=== PATIENT | female | born 1970 | race Caucasian/White ===

== ENCOUNTER 2021-06-07 16:01 | Inpatient (IN) ==
--- NOTE | 2021-06-07 16:27 | DR.EXTPAIN ---
HPI Time seen Time Seen by Provider: 06/07/21 16:24 PCP Primary Care Physician: FAIZAN Complaint/Symptoms Chief Complaint Doctor Comments: 51 y/o female sent in by podiatry for evaluation and admission. She has had pain/swelling/infection involving her left foot. 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 She accidentally cut into it deeper than intended one month ago, trying to cut off the callous. Has been on antibiotics, running a fever, having pain/swelling and redness of the left foot. Pain is sharp, worse with movement and ambulation, nothing makes it better. Pain does not radiate. Admits to fever, chills. No URI symptoms, No bowel or bladder issues. Has chronic R ankle pain as well. + h/o Charcot joint, R ankle surgery. Having complications with her hardware, Dr. Stanley planning on doing ankle surgery as well. Chief Complaint:: PT. C/O FOOT INFECTION WITH ABSCESS TO LEFT FOOT. PT. HAS HAD ISSUES WITH FOOT X 1 MONTH. PT. WAS SENT TO THE ER FOR FURTHER EVALUATION AND ADMISSION TO THE HOSPITAL PER DR. STANLEY. PT. HAS BEEN ON ANTIBIOTICS AT HOME. COVID-19 Coronavirus risk:travel/contact w/high risk person: No Has patient experienced Coronavirus symptoms: No Nurses notes reviewed Nurses Notes Review: Yes Source History Provided: Patient Mode of arrival Mode of Arrival: Wheelchair Timing Onset of Chief Complaint: 05/08/21 PMH PMH Past Medical History: Yes Past Medical History: Diabetes Past Medical History Comment: ENDEMETROSIS, MARTA'S DISEASE Past Surgical History: Yes Surgical History: Abdominal Surgery, Appendectomy, Hysterectomy, Tonsillectomy and Other Past Surgical History Comment: 14 SURGIERIES ON BOTH FEET TOTAL, LEFT FOOT HAS PARTIAL AMPUTATION, THREE SEGMENTS OF TOES REMOVED FROM RIGHT FOOT Family History History of Family Medical Conditions: Yes Family Medical History: Diabetes Mellitus, Cancer and Coronary Artery Disease Social History Does patient currently use any type of tobacco product: No Have you used tobacco products in the last 12 months: No Type of Tobacco Use: None Does any household member use tobacco: No Alcohol Use: None Do you use any recreational Drugs:: No Lives With: Alone Lives Where: Home Infectious screening In the last 2 months have you had wt loss of >10#?: NO Have you had fever, night sweats or hemotysis?: No Have you traveled outside the country in the last 6 months?: No Isolation: Standard ROS Review of Systems Constitutional: Chills, Fever and Weakness Eyes: No Symptoms Reported ENTM: No Symptoms Reported Respiratoy: No Symptoms Reported Cardiovascular: No Symptoms Reported Gastrointestinal/Abdominal: No Symptoms Reported Genitourinary: No Symptoms Reported Neurological: No Symptoms Reported Musculoskeletal: Joint Pain, Left and Foot Integumentary: No Symptoms Reported Hematologic/Lymphatic: No Symptoms Reported Endocrine: No Symptoms Reported Psychiatric: No Symptoms Reported All Other Systems: Reviewed and Negative PE Vital Signs Vitals: Temperature 100.0 F Pulse Rate 94 Respiratory Rate 22 Blood Pressure 107/56 O2 Sat by Pulse Oximetry 94 General Limitations: No Limitations General Appearance: Alert and In No Apparent Distress Head Head Exam: Normal Inspection Eyes Eye exam: Normal Appearance ENT ENT Exam: Normal Exam Neck Neck Exam: Normal Inspection Chest Chest Inspection: Normal Inspection Respiratory Respiratory Exam: Normal Lung Sounds Bilat; negative Accessory Muscle Use and Respiratory Distress Respiratory Exam: Bilateral: Clear to Auscultation Cardiovascular Cardiovascular Exam: Regular Rate, Normal Rhythm and Normal Heart Sounds Abdominal Exam Abdominal Exam: Normal Inspection, Normal Bowel Sounds and Soft; negative Tenderness Extremities Extremities Exam: Other (L foot with 1.5 cm ulceration of volar forefoot, under 1st MTP joint. + swelling, mild erythema. R ankle - with swelling, tenderness, decreased ROM.) Neurological Neurological Exam: Alert, Oriented X3 and CN II-XII Intact; negative Motor Sensory Deficit Psychiatric Psychiatric Exam: Normal Affect Skin Skin Exam: Warm and Dry MDM Differential Diagnosis Differential Diagnosis: Other (cellulitis, abscess) COURSE Treatment Treatment: 51 y/o female with worsening left foot ulcer/infection, was sent here by podiatry to perform medical w/u. They are planning to take to OR in near future. W/u initiated. Left foot with chronic infection. Xray - without evidence for osteomyelitis. Slight gas formation. Labs are overall acceptable. Will be admitted to medical service, discussed with Dr Mc, will admit to medical service. Dr Stanley already consulting with pt for surgery. [facility]OR Labs Reviewed Laboratory Results Reviewed?: Yes Result Diagrams: 06/07/21 16:46 06/07/21 16:46 Laboratory: WBC 9.6 X10^3/uL (3.6-10.0) 06/07/21 16:46 RBC 4.21 X10^6/uL (3.5-5.4) 06/07/21 16:46 Hgb 10.5 g/dL (12.0-16.0) L 06/07/21 16:46 Hct 32.7 % (36.0-47.0) L 06/07/21 16:46 MCV 77.7 fL (80.0-100.0) L 06/07/21 16:46 MCH 25.0 pg (27.0-34.0) L 06/07/21 16:46 MCHC 32.2 g/dL (33.0-35.0) L 06/07/21 16:46 RDW 17.8 % (11.6-16.5) H 06/07/21 16:46 Plt Count 243 X10^3/uL (150.0-450.0) 06/07/21 16:46 MPV 7.6 fL (7.4-11.0) 06/07/21 16:46 Neut % (Auto) 70.2 % (42.0-75.0) 06/07/21 16:46 Lymph % (Auto) 21.2 % (21.0-51.0) 06/07/21 16:46 Bonner % (Auto) 5.5 % (0.0-13.0) 06/07/21 16:46 Eos % (Auto) 2.7 % (0.9-2.9) 06/07/21 16:46 Baso % (Auto) 0.4 % (0.2-1.0) 06/07/21 16:46 Neut # (Auto) 6.8 x10^3/uL (2.2-4.8) H 06/07/21 16:46 Lymph # (Auto) 2.0 X10^3/uL (1.3-2.9) 06/07/21 16:46 Bonner # (Auto) 0.5 x10^3/uL (0.3-0.8) 06/07/21 16:46 Eos # (Auto) 0.3 x10^3/uL (0.0-0.2) H 06/07/21 16:46 Baso # (Auto) 0.0 X10^3/uL (0.0-0.1) 06/07/21 16:46 Absolute Nucleated RBC 0.1 /100WBC 06/07/21 16:46 ESR 49 MM/HOUR (0-20) H 06/07/21 16:46 Sodium 141 mmol/L (136-145) 06/07/21 16:46 Corrected Sodium 142 mmol/L (136-145) 06/07/21 16:46 Potassium 4.2 mmol/L (3.5-5.1) 06/07/21 16:46 Chloride 105 mmol/L (98-107) 06/07/21 16:46 Carbon Dioxide 28.4 mmol/L (21-32) 06/07/21 16:46 BUN 20 mg/dL (7-18) H 06/07/21 16:46 Creatinine 1.28 mg/dL (0.55-1.02) H 06/07/21 16:46 Est GFR (MDRD) Af Amer 56 (>60) L 06/07/21 16:46 Est GFR (MDRD) Non-Af 47 (>60) L 06/07/21 16:46 Glucose 142 mg/dL (65-99) H 06/07/21 16:46 Lactic Acid 1.3 mmol/L (0.4-2.0) 06/07/21 16:46 Calcium 8.1 mg/dL (8.5-10.1) L 06/07/21 16:46 Corrected Calcium 8.9 mg/dL (8.5-10.1) 06/07/21 16:46 Total Bilirubin 0.10 mg/dL (0.2-1.0) L 06/07/21 16:46 AST 14 Units/L (15-37) L 06/07/21 16:46 ALT 15 Units/L (12-78) 06/07/21 16:46 Alkaline Phosphatase 125 Units/L (46-116) H 06/07/21 16:46 C-Reactive Protein 21.40 mg/L (0-3.0) H 06/07/21 16:46 Total Protein 7.2 g/dL (6.4-8.2) 06/07/21 16:46 Albumin 3.0 g/dL (3.4-5.0) L 06/07/21 16:46 Globulin 4.2 g/dL (2.5-4.5) 06/07/21 16:46 Albumin/Globulin Ratio 0.7 Ratio (1.1-2.1) L 06/07/21 16:46 SARS CoV-2 RNA Rapid ABDIAZIZ Negative (NEGATIVE) 06/07/21 16:34 Other Results Comments: Labs acceptable. XRAY XRAY Interpreted by: Radiologist X-ray Results: chronic changes. Opioid Opioid Risk Tool Total: 0 Total Score Risk Category: Low Risk Copyright: Bay REYNAGA predicting aberrant behaviors Diagnosis Discharge Problem: Cellulitis and abscess of foot
--- NOTE | 2021-06-07 17:00 | RAD ---
HISTORYCHRONIC INFECTIONSTUDYFOOT, LEFTCOMPARISONNo recent comparison studiesLeft foot with three viewsFINDINGSPostoperative changes of amputation of the phalanges and distal metatarsal of the great toe. There is soft tissue edema and localized accumulation of soft tissue gas at the site of the amputation and also along the plantar surface of the foot in the same distribution. Correlate clinically for ulceration in this region of interest. While there is soft tissue swelling of the left foot, the swelling is mainly demonstrated along the medial surface of the foot and leg and there is no disseminated soft tissue gas accumulation. Presently, there is no aggressive periosteal reaction, osteopenia or focal cortical erosion associated with the metatarsal stump. Osteoarthritic changes of the phalangeal joints and tarsal metatarsal joints are evident. Calcaneal enthesophytes are observed.IMPRESSIONPostoperative changes of amputation of the phalanges and distal metatarsal of the great toeLocalized soft tissue edema and subcutaneous gas at the surgical amputation site and along the sole of the foot. This may indicate cellulitis. Gas within the soft tissues may be associated with an ulcerative wound communicating with the exterior environment, but may also signify a localized, gas producing organism infection.Presently, there are no plain film findings suggestive of definitive osteomyelitis. Please note that early stages of osteomyelitis may not be detected with plain film imaging, and if this is of clinical concern, follow-up MRI is suggested for improved sensitivity.Other chronic degenerative findings as detailed above.Electronically signed by: DURGA KOVACS (Jun 07, 2021 16:59:26)
--- NOTE | 2021-06-07 17:14 | RAD ---
HISTORYCHRONIC INFECTIONSTUDYANKLE, RIGHTCOMPARISONThere are no recent comparison studies relevant to this examinationThree views of the right ankle are performedFINDINGSPostsurgical hardware related to a hindfoot arthrodesis procedure of the right ankle is observed. The tiffanie extends across the subtalar and tibiotalar joint. There are interlocking screws associated with the distal tiffanie, 1 of which appears chronically fractured. There is a elongated screw extending from the calcaneus into the distal tibia across the subtalar joint with lucency surrounding the screw. There is incomplete bony ankylosis across the subtalar joint. No soft tissue gas is identified. Is generalized cortical thickening, periosteal reaction, and bony sclerosis about the joint. Soft tissue swelling and joint effusion are evident.IMPRESSIONPostsurgical changes of hindfoot arthrodesis with incomplete ankylosis across the subtalar joint. Generalized bony sclerosis, cortical thickening and periosteal reaction may be associated with chronic osteomyelitis.Additionally, there is probable chronic loosening of the screw associated with the calcaneus and distal tibia, and there is also a chronically fractured screw associated with the distal intramedullary tiffanie with distal migration of hardware beyond the plantar surface of the calcaneal cortex.Soft tissue edema, joint effusion, and changes of cellulitis without soft tissue gas accumulationElectronically signed by: DURGA KOVACS (Jun 07, 2021 17:13:32)
[2021-06-07 17:19] LABS: BASOPHILS % (AUTO) 0.4 % (0.2-1.0); EOSINOPHILS # (AUTO) 0.3 x10^3/uL (0.0-0.2); EOSINOPHILS % (AUTO) 2.7 % (0.9-2.9); HEMATOCRIT 32.7 % (36.0-47.0); HEMOGLOBIN 10.5 g/dL (12.0-16.0); LYMPHOCYTES % (AUTO) 21.2 % (21.0-51.0); MEAN CORPUSCULAR HGB CONC 32.2 g/dL (33.0-35.0); MEAN CORPUSCULAR VOLUME 77.7 fL (80.0-100.0); MEAN PLATELET VOLUME 7.6 fL (7.4-11.0); MONOCYTES # (AUTO) 0.5 x10^3/uL (0.3-0.8); MONOCYTES % (AUTO) 5.5 % (0.0-13.0); NEUTROPHILS # (AUTO) 6.8 x10^3/uL (2.2-4.8); NEUTROPHILS % (AUTO) 70.2 % (42.0-75.0); PLATELET COUNT 243 X10^3/uL (150.0-450.0); RED BLOOD COUNT 4.21 X10^6/uL (3.5-5.4); RED CELL DISTRIBUTION WIDTH 17.8 % (11.6-16.5); WHITE BLOOD COUNT 9.6 X10^3/uL (3.6-10.0)
[2021-06-07 17:21] LABS: ERYTHROCYTE SEDIMENTATION RATE 49 MM/HOUR (0-20)
[2021-06-07 17:30] LABS: CALCIUM 8.1 mg/dL (8.5-10.1); CARBON DIOXIDE 28.4 mmol/L (21-32); COR CA(FOR HYPOALB) 8.9 mg/dL (8.5-10.1); CREATININE 1.28 mg/dL (0.55-1.02); TOTAL PROTEIN 7.2 g/dL (6.4-8.2)
[2021-06-07] MEDS ORDERED: ULTRAM PO SCH (21:00)
[2021-06-07] MEDS ORDERED: PATIENT'S HOME MEDICATION (Oxycodone-Acetaminophen 10-325 mg tablet) PO SCH (21:00)
--- NOTE | 2021-06-07 21:00 | CT ---
HISTORYRIGHT ANKLE, HX CHARCOT'S JOINTSTUDYLOWER EXT W/O CONCOMPARISONRadiographs, June 07, 2021TECHNIQUENon-contrast axial CT images of the right ankle. Images were reformatted into coronal and sagittal planes for further evaluation.Radiation dose: 433.10 mGy-cm total DLPFINDINGSIntramedullary tiffanie and interlocking cortical screws placed through the calcaneus/tibia.Inferior 2 screws are fractured.Inferior portion of the intramedullary tiffanie extends beyond the osseous structures at the plantar aspect of the calcaneus.Diffuse sclerosis in the distal tibia surrounding the intramedullary tiffanie with distal loosening.Diffuse sclerosis in the calcaneus.Erosive changes to the distal tibia and calcaneus with numerous small osseous dystrophic fragments surrounding the distal tibia and calcaneus.Type 1 os navicular.Osseous structures of the forefoot and midfoot are unremarkable.Diffuse soft tissue edema; most significant surrounding the tibia and calcaneus.No soft tissue gas.IMPRESSIONIntramedullary tiffanie in place coursing from the calcaneus to the tibia with interlocking cortical screws; inferior to screws are disrupted. Sclerosis and severe erosive changes of the distal tibia and calcaneus, with numerous tiny dystrophic osseous fragments, surrounding the subtalar joint. Findings are consistent with chronic loosening and could represent the sequela of osteomyelitis. Additionally, the inferior aspect of the intramedullary tiffanie extends beyond the inferior osseous surface of the calcaneus.Electronically signed by: Logan Wolff (Jun 07, 2021 20:59:27)
--- NOTE | 2021-06-07 21:52 | DR.CONSULT ---
CONSULT Consultation for Day of: Date: 06/07/21 Chief Complaint Chief Complaint: Left foot wound Allergies Allergies Allergy/AdvReac Type Severity Reaction Status Date / Time aspirin Allergy Verified 06/07/21 16:09 Penicillins Allergy Verified 06/07/21 16:09 History of Present Illness History of Present Illness: Mrs. Mendes is a 51 year old female with a PMHx of DM and right foot charcot deformity. Patient is well known to our practice and she was seen in clinic recently. She presents with a left foot ulcer. She relates she has been dealing with this for about a month. She rates the pain at 6/10. She does not think this wound is getting better. She also relates the wound was draining a milky substance in the last few days. She relates she has had some fevers and chills recently. She denies any nausea, vomiting, sob, calf pain. Past Medical History Past Medical History: Diabetes Past Surgical History Surgical History: Abdominal Surgery, Appendectomy, Hysterectomy, Tonsillectomy and Other Additional Surgical History: Right charcot reconstruction. Family History Family Medical History: Diabetes Mellitus, Cancer and Coronary Artery Disease Social History Does patient currently use any type of tobacco product: No Have you used tobacco products in the last 12 months: No Type of Tobacco Use: None Does any household member use tobacco: No Alcohol Use: None Medications Home Medications: aspirin Allergy (Verified 06/07/21 16:09) Penicillins Allergy (Verified 06/07/21 16:09) CONTINUE taking the following medications buspirone 15 mg PO BID 06/07/21 [History] carvedilol 6.25 mg PO BID 06/07/21 [History] clotrimazole-betamethasone 1 applic TOPICAL BID 06/07/21 [History] dicyclomine 20 mg PO BID 06/07/21 [History] estradiol 1 mg PO DAILY 06/07/21 [History] estradiol 2 applic VAGINAL DAILY 06/07/21 [History] fentanyl 1 patch TRANSDERMAL Q72H 06/07/21 [History] gabapentin 800 mg PO QAM 06/07/21 [History] insulin aspart U-100 [Novolog Flexpen U-100 Insulin] 12 unit SUBCUT TID 06/07/21 [History] insulin degludec [Tresiba FlexTouch U-100] 60 unit SUBCUT QHS 06/07/21 [History] levothyroxine 75 mcg PO DAILY 06/07/21 [History] linagliptin [Tradjenta] 5 mg PO DAILY 06/07/21 [History] linezolid 600 mg PO DAILY 06/07/21 [History] lisinopril 2.5 mg PO DAILY 06/07/21 [History] montelukast 10 mg PO DAILY 06/07/21 [History] oxycodone-acetaminophen 1 tab PO BID 06/07/21 [History] progesterone micronized 300 mg PO QHS 06/07/21 [History] rosuvastatin 5 mg PO DAILY 06/07/21 [History] sulfamethoxazole-trimethoprim 1 tab PO BID 06/07/21 [History] tramadol 100 mg PO BID 06/07/21 [History] venlafaxine 75 mg PO BID 06/07/21 [History] Physical Exam Vital Signs: Temperature 100.0 F Pulse Rate 94 Respiratory Rate 22 Blood Pressure 107/56 O2 Sat by Pulse Oximetry 94 Oriented: Normal, Time and Person Cardiovascular: Other (DP and PT pulses are diminished b/l.) Skin: Other (Left plantar wound that measures about 2.0 cm x 2.0 cm and 1.5 cm. Mild erythema periwound. The periwound is with hyperkeratotic tissue. No malodor. No fuctuance. No crepitus. No active drainage.) Musculoskeletal: Foot (Left foot with prior amputation of the great toe. Mild pain on palpation of the left plantar foot. ) and Sensory Deficit (Sensation diminished to light touch. ) Plan (1) Infection of left foot: Status: Acute Plan: Mrs. Mendes is a 51 year old female with a left foot infection. This is likely due to Diabetes and pressure. ESR 49 and CRP 21.4. X-rays on the left foot show soft tissue gas but this correlates with the wound. Patient will debridement of the wound in the coming days. NPO after midnight. Plan for the OR on 06/08/21 Continue dressing change with dry sterile dressing for now. MRI w/o contrast left foot foot. CT w/o contrast on the right. Vascular studies. Will monitor. Please do not hesitate to contact me with any questions or concerns. Yung [facility] [phone] (2) Cellulitis and abscess of foot: Status: Acute
[2021-06-07] MEDS: COREG TAB 6.25 MG PO SCH (21:55)
[2021-06-07] MEDS: BUSPAR PO SCH (21:55)
[2021-06-07] MEDS: EFFEXOR TAB 75 MG (BID DOSING) PO SCH (21:55)
[2021-06-07] MEDS ORDERED: ROXICODONE TAB 5 MG PO SCH (22:00)
[2021-06-07] MEDS ORDERED: TYLENOL 325 MG TAB PO SCH (22:00)
[2021-06-07] MEDS ORDERED: PATIENT'S HOME MEDICATION (Insulin Aspart U-100 [Novolog Flexpen U-100 Insulin] 100 unit/m SUBCUT SCH (22:00)
[2021-06-07] MEDS: HumaLOG SC SCH (22:27)
[2021-06-08 00:49] VITALS: BMI 52.3
[2021-06-08 06:08] LABS: BASOPHILS # (AUTO) 0.1 X10^3/uL (0.0-0.1); BASOPHILS % (AUTO) 0.7 % (0.2-1.0); EOSINOPHILS # (AUTO) 0.3 x10^3/uL (0.0-0.2); EOSINOPHILS % (AUTO) 3.6 % (0.9-2.9); HEMATOCRIT 33.5 % (36.0-47.0); LYMPHOCYTES # (AUTO) 2.7 X10^3/uL (1.3-2.9); LYMPHOCYTES % (AUTO) 30.4 % (21.0-51.0); MEAN CORPUSCULAR HEMOGLOBIN 25.6 pg (27.0-34.0); MEAN CORPUSCULAR HGB CONC 32.7 g/dL (33.0-35.0); MEAN CORPUSCULAR VOLUME 78.1 fL (80.0-100.0); MEAN PLATELET VOLUME 7.8 fL (7.4-11.0); MONOCYTES # (AUTO) 0.5 x10^3/uL (0.3-0.8); MONOCYTES % (AUTO) 5.8 % (0.0-13.0); NEUTROPHILS # (AUTO) 5.4 x10^3/uL (2.2-4.8); NEUTROPHILS % (AUTO) 59.5 % (42.0-75.0); PLATELET COUNT 244 X10^3/uL (150.0-450.0); RED BLOOD COUNT 4.29 X10^6/uL (3.5-5.4); RED CELL DISTRIBUTION WIDTH 17.6 % (11.6-16.5)
[2021-06-08 06:21] LABS: ALBUMIN 3.3 g/dL (3.4-5.0); CALCIUM 8.6 mg/dL (8.5-10.1); CARBON DIOXIDE 26.9 mmol/L (21-32); COR CA(FOR HYPOALB) 9.2 mg/dL (8.5-10.1); CREATININE 1.31 mg/dL (0.55-1.02); TOTAL PROTEIN 7.7 g/dL (6.4-8.2)
[2021-06-08] MEDS ORDERED: SYNTHROID 75 mcg TAB ONE (07:54)
[2021-06-08] MEDS ORDERED: ZESTRIL TAB 5 MG ONE (07:55)
[2021-06-08] MEDS ORDERED: NEURONTIN CAP 400 MG ONE (07:56)
[2021-06-08] MEDS ORDERED: CRESTOR TAB 10 MG PO ONE (07:56)
[2021-06-08] MEDS ORDERED: ROXICODONE TAB 5 MG PO PRN (08:21)
[2021-06-08] MEDS ORDERED: ATIVAN INJ 2 MG VIAL IVP ONE (08:21)
[2021-06-08] MEDS: ZESTRIL TAB 5 MG PO SCH (08:34)
[2021-06-08] MEDS: SYNTHROID 75 mcg TAB PO SCH (08:34)
[2021-06-08] MEDS: BUSPAR PO SCH ×2 (08:35→20:05)
[2021-06-08] MEDS: NEURONTIN CAP 400 MG PO SCH (08:35)
[2021-06-08] MEDS: CRESTOR TAB 10 MG PO SCH (08:35)
[2021-06-08] MEDS: COREG TAB 6.25 MG PO SCH ×2 (08:35→20:05)
[2021-06-08] MEDS: EFFEXOR TAB 75 MG (BID DOSING) PO SCH ×2 (08:36→20:05)
[2021-06-08] MEDS: ULTRAM PO PRN (08:36)
[2021-06-08] MEDS: HumaLOG SC SCH ×2 (08:36→20:00)
[2021-06-08] MEDS ORDERED: EFFEXOR TAB 75 MG (BID DOSING) PO NR (08:46)
[2021-06-08] MEDS: TRADJENTA PO SCH (08:47)
[2021-06-08] MEDS ORDERED: PHARMACY CONSULT - VANCOMYCIN XX SCH (09:00)
[2021-06-08] MEDS: VANCOMYCIN IV *PREMIX 1 G/200 ML BAG 1 G/200 ML PIGGYBACK IV SCH ×2 (09:06→21:04)
--- NOTE | 2021-06-08 09:53 | DR.H&P ---
H&P History & Physical for Day of: H&P Date: 06/08/21 Chief Complaint Chief Complaint: left foot infection Allergies Allergies Allergy/AdvReac Type Severity Reaction Status Date / Time aspirin Allergy Verified 06/07/21 16:09 Penicillins Allergy Verified 06/07/21 16:09 History of Present Illness History of Present Illness: Ms Mendes is a 51y/o female with a PMH of diabetes, HTN, Hypothyroidism, Anxiety, depression and Charcot foot presented after failing outpatient treated for left foot cellulitis and ulcer. She has had recurrent surgeries in both feet due to Charcot deformity and foot infections. She denies fever or chills. She is being admitted by Podiatry for a I&D and surgical intervention planned for this afternoon. Patient is extremely anxious on exam and worried about the outcome of the surgery. Labs reviewed Imaging reviewed Plan: follow recommendations as per Podiatry, patient scheduled for procedure this afternoon. Follow pending imaging. Continue NPO and pain control. Continue IV vancomycin. Will give a dose of ativan. Monitor AM labs and imaging. Past Medical History Past Medical History: Depression, Diabetes, Dyslipidemia, Hypertension and Hypothyroidism Additional Medical History: Charcoot foot Past Surgical History Surgical History: Abdominal Surgery, Appendectomy, Hysterectomy, Tonsillectomy and Other Additional Surgical History: Right charcot reconstruction. Family History Family Medical History: Diabetes Mellitus, Cancer and Coronary Artery Disease Social History Does patient currently use any type of tobacco product: No Have you used tobacco products in the last 12 months: No Type of Tobacco Use: None Does any household member use tobacco: No Alcohol Use: None Drug Use: Prescription Drugs Prescription drug monitoring program results: PDMP reviewed and no concerns identified Medications Home Medications: aspirin Allergy (Verified 06/07/21 16:09) Penicillins Allergy (Verified 06/07/21 16:09) CONTINUE taking the following medications buspirone 15 mg PO BID 06/07/21 [History] carvedilol 6.25 mg PO BID 06/07/21 [History] clotrimazole-betamethasone 1 applic TOPICAL BID 06/07/21 [History] dicyclomine 20 mg PO BID 06/07/21 [History] estradiol 1 mg PO DAILY 06/07/21 [History] estradiol 2 applic VAGINAL DAILY 06/07/21 [History] fentanyl 1 patch TRANSDERMAL Q72H 06/07/21 [History] gabapentin 800 mg PO QAM 06/07/21 [History] insulin aspart U-100 [Novolog Flexpen U-100 Insulin] 12 unit SUBCUT TID 06/07/21 [History] insulin degludec [Tresiba FlexTouch U-100] 60 unit SUBCUT QHS 06/07/21 [History] levothyroxine 75 mcg PO DAILY 06/07/21 [History] linagliptin [Tradjenta] 5 mg PO DAILY 06/07/21 [History] linezolid 600 mg PO DAILY 06/07/21 [History] lisinopril 2.5 mg PO DAILY 06/07/21 [History] montelukast 10 mg PO DAILY 06/07/21 [History] oxycodone-acetaminophen 1 tab PO BID 06/07/21 [History] progesterone micronized 300 mg PO QHS 06/07/21 [History] rosuvastatin 5 mg PO DAILY 06/07/21 [History] sulfamethoxazole-trimethoprim 1 tab PO BID 06/07/21 [History] tramadol 100 mg PO BID 06/07/21 [History] venlafaxine 75 mg PO BID 06/07/21 [History] Labs Result Diagrams: 06/10/21 04:10 06/10/21 04:10 Labs: Laboratory WBC 9.0 X10^3/uL (3.6-10.0) 06/08/21 05:26 RBC 4.29 X10^6/uL (3.5-5.4) 06/08/21 05:26 Hgb 11.0 g/dL (12.0-16.0) L 06/08/21 05:26 Hct 33.5 % (36.0-47.0) L 06/08/21 05:26 MCV 78.1 fL (80.0-100.0) L 06/08/21 05:26 MCH 25.6 pg (27.0-34.0) L 06/08/21 05:26 MCHC 32.7 g/dL (33.0-35.0) L 06/08/21 05:26 RDW 17.6 % (11.6-16.5) H 06/08/21 05:26 Plt Count 244 X10^3/uL (150.0-450.0) 06/08/21 05:26 MPV 7.8 fL (7.4-11.0) 06/08/21 05:26 Neut % (Auto) 59.5 % (42.0-75.0) 06/08/21 05:26 Lymph % (Auto) 30.4 % (21.0-51.0) 06/08/21 05:26 Walsh % (Auto) 5.8 % (0.0-13.0) 06/08/21 05:26 Eos % (Auto) 3.6 % (0.9-2.9) H 06/08/21 05:26 Baso % (Auto) 0.7 % (0.2-1.0) 06/08/21 05:26 Neut # (Auto) 5.4 x10^3/uL (2.2-4.8) H 06/08/21 05:26 Lymph # (Auto) 2.7 X10^3/uL (1.3-2.9) 06/08/21 05:26 Walsh # (Auto) 0.5 x10^3/uL (0.3-0.8) 06/08/21 05:26 Eos # (Auto) 0.3 x10^3/uL (0.0-0.2) H 06/08/21 05:26 Baso # (Auto) 0.1 X10^3/uL (0.0-0.1) 06/08/21 05:26 Absolute Nucleated RBC 0.0 /100WBC 06/08/21 05:26 ESR 49 MM/HOUR (0-20) H 06/07/21 16:46 Sodium 138 mmol/L (136-145) 06/08/21 05:26 Corrected Sodium 138 mmol/L (136-145) 06/08/21 05:26 Potassium 4.2 mmol/L (3.5-5.1) 06/08/21 05:26 Chloride 103 mmol/L (98-107) 06/08/21 05:26 Carbon Dioxide 26.9 mmol/L (21-32) 06/08/21 05:26 BUN 26 mg/dL (7-18) H 06/08/21 05:26 Creatinine 1.31 mg/dL (0.55-1.02) H 06/08/21 05:26 Est GFR (MDRD) Af Amer 55 (>60) L 06/08/21 05:26 Est GFR (MDRD) Non-Af 45 (>60) L 06/08/21 05:26 Glucose 114 mg/dL (65-99) H 06/08/21 05:26 POC Glucose (mg/dL) 101 mg/dL (65-99) H 06/08/21 05:25 Lactic Acid 1.3 mmol/L (0.4-2.0) 06/07/21 16:46 Calcium 8.6 mg/dL (8.5-10.1) 06/08/21 05:26 Corrected Calcium 9.2 mg/dL (8.5-10.1) 06/08/21 05:26 Total Bilirubin 0.20 mg/dL (0.2-1.0) 06/08/21 05:26 AST 12 Units/L (15-37) L 06/08/21 05:26 ALT 17 Units/L (12-78) 06/08/21 05:26 Alkaline Phosphatase 122 Units/L (46-116) H 06/08/21 05:26 C-Reactive Protein 21.40 mg/L (0-3.0) H 06/07/21 16:46 Total Protein 7.7 g/dL (6.4-8.2) 06/08/21 05:26 Albumin 3.3 g/dL (3.4-5.0) L 06/08/21 05:26 Globulin 4.4 g/dL (2.5-4.5) 06/08/21 05:26 Albumin/Globulin Ratio 0.8 Ratio (1.1-2.1) L 06/08/21 05:26 SARS CoV-2 RNA Rapid ABDIAZIZ Negative (NEGATIVE) 06/07/21 16:34 Review of Systems Constitutional: No Symptoms Reported Eyes: No Symptoms Reported ENT: No Symptoms Reported Respiratory: No Symptoms Reported Cardiovascular: No Symptoms Reported Gastrointestinal: No Symptoms Reported Genitourinary: No Symptoms Reported Musculoskeletal: Foot Pain Skin: Wound Neurological: No Symptoms Reported Physical Exam Vital Signs: Temperature 98.0 F Pulse Rate [Left Radial] 87 Pulse Rate 94 Respiratory Rate 20 Blood Pressure [Right Arm] 121/70 Blood Pressure 107/56 O2 Sat by Pulse Oximetry 96 Oriented: Normal, Time and Person Eyes: Normal Ear: Normal Nose: Normal Respiratory: Clear Throughout Cardiovascular: Normal Auscultation: Bowel Sounds: Normal Palpation: Normal Tenderness: Normal Skin: Wound Musculoskeletal: Left and Foot (ulcer noted on the plantar surface, no drainge, surrounding erythema ) Psychiatric: Anxiety Mood Description: Anxious Affect: Anxious Speech Pattern: Clear and Appropriate Assessment/Plan (1) Infection of left foot: Status: Acute (2) Cellulitis and abscess of foot: Status: Acute (3) Charcot foot due to diabetes mellitus: Status: Acute (4) HTN (hypertension): Qualifiers: Hypertension type: primary hypertension Qualified Code(s): I10 - Essential (primary) hypertension Status: Acute (5) HLD (hyperlipidemia): Qualifiers: Hyperlipidemia type: unspecified Qualified Code(s): E78.5 - Hyperlipidemia, unspecified Status: Acute (6) Anxiety: Status: Acute (7) Depression: Qualifiers: Depression Type: unspecified Qualified Code(s): F32.A - Depression, unspecified Status: Acute Review H&P Reviewed: Yes Patient was examined?: Yes
--- NOTE | 2021-06-08 12:02 | RAD ---
HISTORYPREOP FOR FOOT SURGERYSTUDYCHEST, 1 VIEWCOMPARISONNoneTECHNIQUEAP view of the chestFINDINGSThe cardiac and mediastinal contours are within normal limits. The lungs are clear without focal consolidation or segmental collapse. No pleural effusion or pneumothorax.IMPRESSIONNo acute pulmonary process.Electronically signed by: Arjun Mendes (Jun 08, 2021 12:01:07)
[2021-06-08] MEDS ORDERED: NS 1,000 ML IV 1,000 ML ONE (13:48)
[2021-06-08] MEDS ORDERED: CLEOCIN 600 MG IV PREMIX 600 MG/50 ML BAG IV ONE (13:48)
[2021-06-08] MEDS ORDERED: VANCOMYCIN HCL ONE (14:04)
[2021-06-08] MEDS ORDERED: TOBRAMYCIN SULFATE ONE (14:05)
[2021-06-08] MEDS ORDERED: MARCAINE 0.25% INJ ONE (14:05)
[2021-06-08] MEDS ORDERED: FENTANYL VIAL INJ 100 mcg ONE (14:22)
[2021-06-08] MEDS ORDERED: KETALAR ONE (14:26)
[2021-06-08] MEDS ORDERED: DIPRIVAN VIAL ONE (14:26)
[2021-06-08] MEDS ORDERED: EPHEDRINE SULFATE INJ ONE (14:26)
[2021-06-08] MEDS ORDERED: VERSED ONE (14:26)
[2021-06-08] MEDS ORDERED: BETADINE SOLN ONE (14:32)
--- NOTE | 2021-06-08 15:16 | CT ---
CT left foot without contrastIndication: Left foot infection.[email or web address] radiographTECHNIQUEHelical images through the left lower extremity from the distal tibia and fibula to the foot without contrastFINDINGS: There is been prior amputation of the great toe phalanges. Degenerative change of the 2nd toe MTP joint and diffuse IP joint DJD noted. Midfoot DJD noted with subchondral cystic change and sclerosis with few chronic appearing osseous fragments associated with the 2nd and 3rd toe tarsometatarsal joints noted. Enthesopathy seen the calcaneus. Small this density seen at the fibula. This is near the lateral ankle ligaments, possibly from old injury. Type 2 navicular os noted.No aggressive periosteal reaction identified.Mild subcutaneous soft tissue edema noted.There is low-density material around the great toe osteotomy site, possibly fluid, measuring 1.9 x 1.9 x 2.8 centimeters on sagittal image 33 and axial image 84 (AP, trans, cc). Skin defect suspected on sagittal image 38. Abscess is possible. No other collection identified. The margins of the bone at the great toe are minimally irregular on sagittal image 33, and osteomyelitis cannot be excluded. The findings are not highly specific.IMPRESSION1. Postsurgical change from great toe amputation with fluid surrounding the osteotomy site. Abscess here is possible, possibly communicating with the skin. Lack of contrast limits sensitivity somewhat. Targeted sonogram may be helpful2. Irregularity of the osteotomy site of the great toe is nonspecific, slightly irregular, and osteomyelitis here cannot be excluded. Follow-up with radiographs and/or MR imaging to better evaluate.3. Degenerative changes and other findings as above.Electronically signed by: WASHINGTON SONG (Jun 08, 2021 15:15:11)
[2021-06-08] MEDS ORDERED: ROXICODONE TAB 5 MG PO ONE (15:58)
--- NOTE | 2021-06-08 15:58 | VAS ---
HISTORYFoot infection with abscess, fractures and Charcot joint.STUDYLOWER EXT ARTERIALCOMPARISONNo relevant prior studies available.[id number] static color Doppler flow and vascular waveform images of the arterial structures in both lower extremities were reviewed.FINDINGSRight lower extremity:Biphasic waveform in the PROGRAM SERVICES PLANNER with a peak systolic velocity of 149.9 cm/second.Biphasic waveform in the proximal SFA with peak systolic velocity of 90.7 cm/second.Biphasic waveform in the mid SFA with a peak systolic velocity of 124.9 cm/second.Biphasic waveform in the distal SFA with peak systolic velocity of 97.3 cm/second.Biphasic waveform in the proximal popliteal artery with peak systolic velocity of 82.8 cm/second.Biphasic waveform the distal popliteal artery with a peak systolic velocity of 81.5 cm/second.Monophasic waveform in the proximal TRANSFER DRIVER with peak systolic velocity of 76.2 cm/second.Monophasic waveform in the mid TRANSFER DRIVER with a peak systolic velocity of 69.7 cm/second.Triphasic waveform in the distal TRANSFER DRIVER with a peak systolic velocity of 105.2 cm/second.Monophasic waveform in the DPA with a peak systolic velocity of 38.1 cm/second.Left lower extremity:Triphasic waveform in the PRO[employer] SERVICES PLANNER with a peak systolic velocity 135.4 cm/second.Triphasic waveform in the proximal SFA with peak systolic velocity of 90.7 cm/second.Triphasic waveform in the mid SFA with peak systolic velocity of 98.6 cm/second.Triphasic waveform in the distal SFA with peak systolic velocity of 103.9 cm/second.Biphasic waveform in the proximal popliteal artery with a peak systolic velocity of 59.2 cm/second.Monophasic waveform in the distal popliteal artery with a peak systolic velocity of 99.9 cm/second.Triphasic waveform in the proximal TRANSFER DRIVER with a peak systolic velocity of 47.4 cm/second.Biphasic waveform in the mid TRANSFER DRIVER with a peak systolic velocity of 53.9 cm/second.Biphasic waveform in the distal TRANSFER DRIVER with a peak systolic velocity of 71.0 cm/second.Triphasic waveform in the DPA with a peak systolic velocity of 95.9 cm/second.IMPRESSIONModerate peripheral vascular disease in the right lower extremity and mild peripheral vascular disease in the left lower extremity by waveform analysis. Arterial structures throughout both lower extremities remain patent.Electronically signed by: Logan Wolff (Jun 08, 2021 15:56:09)
[2021-06-08] MEDS ORDERED: NS IRRIGATION* 500 ML IR ONE (17:01)
[2021-06-08] MEDS: COLACE CAP 100 MG PO SCH (20:05)
[2021-06-08] MEDS: ROXICODONE TAB 5 MG PO PRN (20:15)
[2021-06-08] MEDS ORDERED: VISTARIL PO ONE (23:46)
[2021-06-09] MEDS: ROXICODONE TAB 5 MG PO PRN ×4 (01:15→17:49)
[2021-06-09] MEDS: VANCOMYCIN IV *PREMIX 1 G/200 ML BAG 1 G/200 ML PIGGYBACK IV SCH ×3 (05:40→21:11)
[2021-06-09] MEDS: VISTARIL PO PRN ×3 (08:00→22:45)
[2021-06-09] MEDS: COREG TAB 6.25 MG PO SCH ×2 (08:01→20:30)
[2021-06-09] MEDS: BUSPAR PO SCH ×2 (08:01→20:30)
[2021-06-09] MEDS: CRESTOR TAB 10 MG PO SCH (08:02)
[2021-06-09] MEDS: NEURONTIN CAP 400 MG PO SCH (08:02)
[2021-06-09] MEDS: ZESTRIL TAB 5 MG PO SCH (08:02)
[2021-06-09] MEDS: SYNTHROID 75 mcg TAB PO SCH (08:04)
[2021-06-09] MEDS: EFFEXOR TAB 75 MG (BID DOSING) PO SCH ×2 (08:04→20:30)
[2021-06-09] MEDS: HumaLOG SC SCH ×2 (09:14→20:31)
[2021-06-09] MEDS: TRADJENTA PO SCH (09:15)
--- NOTE | 2021-06-09 09:55 | PCM.PROG ---
Progress Note Progress Note for Day of Date of Exam: 06/09/21 Subjective Subjective: Mrs. Mendes is a 51 year old female who is s/p left foot I&D with partial 1st ray resection, DOS was 06/08. Patient with a Hx of right LE charcot. She is doing well with no pain. No issues over night. She denies any f/c/n/v/sob/calf pain. Past Medical Family Social History Past Med/Fam/Surg Hx: No changes since H&P Allergies: Allergies aspirin Allergy (Verified 06/07/21 16:09) Penicillins Allergy (Verified 06/07/21 16:09) Review of Systems ROS: No change since H&P Vital Signs and I&O's Vital Signs: Temperature 98.2 F Pulse Rate [Left Radial] 81 Pulse Rate 81 Respiratory Rate 18 Blood Pressure [Right Arm] 128/57 Blood Pressure 110/59 O2 Sat by Pulse Oximetry 100 Intake and Output: Intake & Output 06/06/21 06/07/21 06/08/21 06/09/21 23:59 23:59 23:59 23:59 Intake Total 1140 / 1140 1622 / 1622 180 / 180 Output Total 649 / 649 Balance 1140 / 1140 973 / 973 180 / 180 Physical Exam Oriented: Normal, Time and Person Cardiovascular: Other (DP and PT pulses are diminished b/l.) Skin: Other (Left plantar wound that measures about 2.0 cm x 2.0 cm and 1.5 cm. Mild erythema periwound. The periwound is with hyperkeratotic tissue. No malodor. No fuctuance. No crepitus. No active drainage.) Musculoskeletal: Foot (Left foot dressing is clean, dry and intact. No strike through. Cap fill less than 3 sec to all 4 digits. Patient is able to move her digits. ) and Sensory Deficit (Sensation diminished to light touch. ) Speech Pattern: Clear and Appropriate Laboratory and Diagnostics Result Diagrams: 06/08/21 05:26 06/08/21 05:26 Labs: 06/08/21 15:00 Foot - Left Wound Gram Stain - Final Laboratory WBC 9.0 X10^3/uL (3.6-10.0) 06/08/21 05:26 RBC 4.29 X10^6/uL (3.5-5.4) 06/08/21 05:26 Hgb 11.0 g/dL (12.0-16.0) L 06/08/21 05:26 Hct 33.5 % (36.0-47.0) L 06/08/21 05:26 MCV 78.1 fL (80.0-100.0) L 06/08/21 05:26 MCH 25.6 pg (27.0-34.0) L 06/08/21 05:26 MCHC 32.7 g/dL (33.0-35.0) L 06/08/21 05:26 RDW 17.6 % (11.6-16.5) H 06/08/21 05:26 Plt Count 244 X10^3/uL (150.0-450.0) 06/08/21 05:26 MPV 7.8 fL (7.4-11.0) 06/08/21 05:26 Neut % (Auto) 59.5 % (42.0-75.0) 06/08/21 05:26 Lymph % (Auto) 30.4 % (21.0-51.0) 06/08/21 05:26 [place] % (Auto) 5.8 % (0.0-13.0) 06/08/21 05:26 Eos % (Auto) 3.6 % (0.9-2.9) H 06/08/21 05:26 Baso % (Auto) 0.7 % (0.2-1.0) 06/08/21 05:26 Neut # (Auto) 5.4 x10^3/uL (2.2-4.8) H 06/08/21 05:26 Lymph # (Auto) 2.7 X10^3/uL (1.3-2.9) 06/08/21 05:26 [place] # (Auto) 0.5 x10^3/uL (0.3-0.8) 06/08/21 05:26 Eos # (Auto) 0.3 x10^3/uL (0.0-0.2) H 06/08/21 05:26 Baso # (Auto) 0.1 X10^3/uL (0.0-0.1) 06/08/21 05:26 Absolute Nucleated RBC 0.0 /100WBC 06/08/21 05:26 ESR 49 MM/HOUR (0-20) H 06/07/21 16:46 Sodium 138 mmol/L (136-145) 06/08/21 05:26 Corrected Sodium 138 mmol/L (136-145) 06/08/21 05:26 Potassium 4.2 mmol/L (3.5-5.1) 06/08/21 05:26 Chloride 103 mmol/L (98-107) 06/08/21 05:26 Carbon Dioxide 26.9 mmol/L (21-32) 06/08/21 05:26 BUN 26 mg/dL (7-18) H 06/08/21 05:26 Creatinine 1.31 mg/dL (0.55-1.02) H 06/08/21 05:26 Est GFR (MDRD) Af Amer 55 (>60) L 06/08/21 05:26 Est GFR (MDRD) Non-Af 45 (>60) L 06/08/21 05:26 Glucose 114 mg/dL (65-99) H 06/08/21 05:26 POC Glucose (mg/dL) 106 mg/dL (65-99) H 06/09/21 05:39 Lactic Acid 1.3 mmol/L (0.4-2.0) 06/07/21 16:46 Calcium 8.6 mg/dL (8.5-10.1) 06/08/21 05:26 Corrected Calcium 9.2 mg/dL (8.5-10.1) 06/08/21 05:26 Total Bilirubin 0.20 mg/dL (0.2-1.0) 06/08/21 05:26 AST 12 Units/L (15-37) L 06/08/21 05:26 ALT 17 Units/L (12-78) 06/08/21 05:26 Alkaline Phosphatase 122 Units/L (46-116) H 06/08/21 05:26 C-Reactive Protein 21.40 mg/L (0-3.0) H 06/07/21 16:46 Total Protein 7.7 g/dL (6.4-8.2) 06/08/21 05:26 Albumin 3.3 g/dL (3.4-5.0) L 06/08/21 05:26 Globulin 4.4 g/dL (2.5-4.5) 06/08/21 05:26 Albumin/Globulin Ratio 0.8 Ratio (1.1-2.1) L 06/08/21 05:26 SARS CoV-2 RNA Rapid ABDIAZIZ Negative (NEGATIVE) 06/07/21 16:34 Tissue Pathology To follow 06/08/21 15:00 Plan (1) Infection of left foot: Status: Acute Plan: Assessment: Mrs. Mendes is s/p left foot surgery with partial 1st ray resection, DOS was 06/08. Left foot dressing is c/d/I with no strike through. She is with VSS, NAD, and no leukocytosis. Vascular studies shows arterial disease. CT on the left showed likely 1st metatarsal OM, this exam was prior to surgery. Right CT shows distal hardware looseing with charcot changes. Currently showing GPC on gram stain. She is currently on Vanc. She has abx beads in the left foot wound. Plan: Dressing on the left to be kept intact. NWB on the left. PT consult Pending final micro Pending pathology. Tentative plan for the OR on Friday this week Will Monitor Please do not hesitate to contact me with any questions or concerns. Yung Jonas, Ankle and Foot fellow [phone] (2) Cellulitis and abscess of foot: Status: Acute
[2021-06-09] MEDS ORDERED: PHARMACY COMMENT IV ONE (13:30)
[2021-06-09 15:10] LABS: CREATININE 1.11 mg/dL (0.55-1.02); VANCOMYCIN,TROUGH 12.4 ug/mL (15-20)
--- NOTE | 2021-06-09 18:53 | PCM.PROG ---
Progress Note Progress Note for Day of Date of Exam: 06/09/21 Subjective Subjective: Mrs. Mendes is a 51 year old female who is s/p left foot I&D with partial 1st ray resection, DOS was 06/08. Patient with a Hx of right LE charcot. She is doing well with no pain. No issues over night. She denies any f/c/n/v/sob/calf pain. No new complaints this am. Past Medical Family Social History Past Med/Fam/Surg Hx: No changes since H&P Allergies: Allergies aspirin Allergy (Verified 06/07/21 16:09) Penicillins Allergy (Verified 06/07/21 16:09) Review of Systems ROS: No change since H&P Vital Signs and I&O's Vital Signs: Temperature 98.6 F Pulse Rate [Left Radial] 83 Pulse Rate 81 Respiratory Rate 20 Blood Pressure [Right Arm] 104/58 Blood Pressure 110/59 O2 Sat by Pulse Oximetry 91 Intake and Output: Intake & Output 06/07/21 06/08/21 06/09/21 06/10/21 11:59 11:59 11:59 11:59 Intake Total 1140 / 1140 1802 / 1802 780 / 780 Output Total 649 / 649 Balance 1140 / 1140 1153 / 1153 780 / 780 Physical Exam Oriented: Normal, Time and Person Eyes: Normal Ear: Normal Nose: Normal Throat: Normal Respiratory: Normal Cardiovascular: Normal and Other (DP and PT pulses are diminished b/l.) Auscultation: Bowel Sounds: Normal Palpation: Normal Tenderness: Normal Skin: Normal and Other (Left plantar wound that measures about 2.0 cm x 2.0 cm and 1.5 cm. Mild erythema periwound. The periwound is with hyperkeratotic tissue. No malodor. No fuctuance. No crepitus. No active drainage.) Musculoskeletal: Foot (Left foot dressing is clean, dry and intact. No strike through. Cap fill less than 3 sec to all 4 digits. Patient is able to move her digits. ) and Sensory Deficit (Sensation diminished to light touch. ) Mood Description: Calm and Happy Affect: Normal Speech Pattern: Clear and Appropriate Laboratory and Diagnostics Result Diagrams: 06/08/21 05:26 06/09/21 14:40 Labs: 06/07/21 16:55 Blood Blood Culture - Preliminary 06/07/21 16:46 Blood Blood Culture - Preliminary 06/08/21 15:00 Foot - Left Wound Gram Stain - Final 06/08/21 15:00 Foot - Left Wound Culture - Preliminary Laboratory WBC 9.0 X10^3/uL (3.6-10.0) 06/08/21 05:26 RBC 4.29 X10^6/uL (3.5-5.4) 06/08/21 05:26 Hgb 11.0 g/dL (12.0-16.0) L 06/08/21 05:26 Hct 33.5 % (36.0-47.0) L 06/08/21 05:26 MCV 78.1 fL (80.0-100.0) L 06/08/21 05:26 MCH 25.6 pg (27.0-34.0) L 06/08/21 05:26 MCHC 32.7 g/dL (33.0-35.0) L 06/08/21 05:26 RDW 17.6 % (11.6-16.5) H 06/08/21 05:26 Plt Count 244 X10^3/uL (150.0-450.0) 06/08/21 05:26 MPV 7.8 fL (7.4-11.0) 06/08/21 05:26 Neut % (Auto) 59.5 % (42.0-75.0) 06/08/21 05:26 Lymph % (Auto) 30.4 % (21.0-51.0) 06/08/21 05:26 [place] % (Auto) 5.8 % (0.0-13.0) 06/08/21 05:26 Eos % (Auto) 3.6 % (0.9-2.9) H 06/08/21 05:26 Baso % (Auto) 0.7 % (0.2-1.0) 06/08/21 05:26 Neut # (Auto) 5.4 x10^3/uL (2.2-4.8) H 06/08/21 05:26 Lymph # (Auto) 2.7 X10^3/uL (1.3-2.9) 06/08/21 05:26 [place] # (Auto) 0.5 x10^3/uL (0.3-0.8) 06/08/21 05:26 Eos # (Auto) 0.3 x10^3/uL (0.0-0.2) H 06/08/21 05:26 Baso # (Auto) 0.1 X10^3/uL (0.0-0.1) 06/08/21 05:26 Absolute Nucleated RBC 0.0 /100WBC 06/08/21 05:26 ESR 49 MM/HOUR (0-20) H 06/07/21 16:46 Sodium 138 mmol/L (136-145) 06/08/21 05:26 Corrected Sodium 138 mmol/L (136-145) 06/08/21 05:26 Potassium 4.2 mmol/L (3.5-5.1) 06/08/21 05:26 Chloride 103 mmol/L (98-107) 06/08/21 05:26 Carbon Dioxide 26.9 mmol/L (21-32) 06/08/21 05:26 BUN 26 mg/dL (7-18) H 06/08/21 05:26 Creatinine 1.11 mg/dL (0.55-1.02) H 06/09/21 14:40 Est GFR (MDRD) Af Amer 55 (>60) L 06/08/21 05:26 Est GFR (MDRD) Non-Af 45 (>60) L 06/08/21 05:26 Glucose 114 mg/dL (65-99) H 06/08/21 05:26 POC Glucose (mg/dL) 132 mg/dL (65-99) H 06/09/21 16:48 Lactic Acid 1.3 mmol/L (0.4-2.0) 06/07/21 16:46 Calcium 8.6 mg/dL (8.5-10.1) 06/08/21 05:26 Corrected Calcium 9.2 mg/dL (8.5-10.1) 06/08/21 05:26 Total Bilirubin 0.20 mg/dL (0.2-1.0) 06/08/21 05:26 AST 12 Units/L (15-37) L 06/08/21 05:26 ALT 17 Units/L (12-78) 06/08/21 05:26 Alkaline Phosphatase 122 Units/L (46-116) H 06/08/21 05:26 C-Reactive Protein 21.40 mg/L (0-3.0) H 06/07/21 16:46 Total Protein 7.7 g/dL (6.4-8.2) 06/08/21 05:26 Albumin 3.3 g/dL (3.4-5.0) L 06/08/21 05:26 Globulin 4.4 g/dL (2.5-4.5) 06/08/21 05:26 Albumin/Globulin Ratio 0.8 Ratio (1.1-2.1) L 06/08/21 05:26 Vancomycin Trough 12.4 ug/mL (15-20) L 06/09/21 14:40 SARS CoV-2 RNA Rapid ABDIAZIZ Negative (NEGATIVE) 06/07/21 16:34 Tissue Pathology To follow 06/08/21 15:00 Radiology Reviewed: Yes Plan (1) Infection of left foot: Status: Acute Plan: Assessment: Mrs. Mendes is s/p left foot surgery with partial 1st ray resection, DOS was 06/08. Left foot dressing is c/d/I with no strike through. She is with VSS, NAD, and no leukocytosis. Vascular studies shows arterial disease. CT on the left showed likely 1st metatarsal OM, this exam was prior to surgery. Right CT shows distal hardware looseing with charcot changes. Currently showing GPC on gram stain. She is currently on Vanc. She has abx beads in the left foot wound. Plan: Dressing on the left to be kept intact. NWB on the left. PT consult Pending final micro Pending pathology. Tentative plan for the OR on Friday this week Will Monitor Please do not hesitate to contact me with any questions or concerns. Yung Jonas, Ankle and Foot fellow [phone] (2) Cellulitis and abscess of foot: Status: Acute Plan: Continue current treatment.
[2021-06-09] MEDS: COLACE CAP 100 MG PO SCH (20:30)
[2021-06-09] MEDS: ZOFRAN TAB 4 MG SL PRN (21:11)
[2021-06-09] MEDS: ULTRAM PO PRN (23:26)
[2021-06-10 05:12] LABS: BASOPHILS % (AUTO) 0.3 % (0.2-1.0); EOSINOPHILS # (AUTO) 0.2 x10^3/uL (0.0-0.2); EOSINOPHILS % (AUTO) 3.4 % (0.9-2.9); HEMATOCRIT 29.9 % (36.0-47.0); HEMOGLOBIN 9.8 g/dL (12.0-16.0); LYMPHOCYTES # (AUTO) 1.6 X10^3/uL (1.3-2.9); LYMPHOCYTES % (AUTO) 25.2 % (21.0-51.0); MEAN CORPUSCULAR HEMOGLOBIN 25.4 pg (27.0-34.0); MEAN CORPUSCULAR HGB CONC 32.8 g/dL (33.0-35.0); MEAN CORPUSCULAR VOLUME 77.4 fL (80.0-100.0); MEAN PLATELET VOLUME 7.7 fL (7.4-11.0); MONOCYTES # (AUTO) 0.5 x10^3/uL (0.3-0.8); MONOCYTES % (AUTO) 7.7 % (0.0-13.0); NEUTROPHILS % (AUTO) 63.4 % (42.0-75.0); PLATELET COUNT 157 X10^3/uL (150.0-450.0); RED BLOOD COUNT 3.87 X10^6/uL (3.5-5.4); RED CELL DISTRIBUTION WIDTH 18.1 % (11.6-16.5); WHITE BLOOD COUNT 6.3 X10^3/uL (3.6-10.0)
[2021-06-10] MEDS: VANCOMYCIN IV *PREMIX 1 G/200 ML BAG 1 G/200 ML PIGGYBACK IV SCH ×3 (05:29→21:22)
[2021-06-10 05:43] LABS: ALANINE AMINOTRANSFERASE 17 Units/L (12-78); ALBUMIN 2.8 g/dL (3.4-5.0); ALKALINE PHOSPHATASE 101 Units/L (46-116); ASPARTATE AMINO TRANSFERASE 17 Units/L (15-37); BLOOD UREA NITROGEN 14 mg/dL (7-18); CALCIUM 8.3 mg/dL (8.5-10.1); CHLORIDE 108 mmol/L (98-107); COR CA(FOR HYPOALB) 9.3 mg/dL (8.5-10.1); CREATININE 0.82 mg/dL (0.55-1.02); SODIUM 143 mmol/L (136-145); TOTAL PROTEIN 6.8 g/dL (6.4-8.2); eGFR NON BLACK RACES > 60 (>60)
[2021-06-10] MEDS: ROXICODONE TAB 5 MG PO PRN ×4 (06:12→20:01)
[2021-06-10] MEDS: VISTARIL PO PRN ×3 (07:08→21:31)
[2021-06-10] MEDS: TRADJENTA PO SCH ×2 (08:18→08:51)
[2021-06-10] MEDS: CRESTOR TAB 10 MG PO SCH (08:35)
[2021-06-10] MEDS: BUSPAR PO SCH ×2 (08:35→21:30)
[2021-06-10] MEDS: COREG TAB 6.25 MG PO SCH ×2 (08:35→21:31)
[2021-06-10] MEDS: NEURONTIN CAP 400 MG PO SCH (08:36)
[2021-06-10] MEDS: EFFEXOR TAB 75 MG (BID DOSING) PO SCH ×2 (08:36→21:31)
[2021-06-10] MEDS: SYNTHROID 75 mcg TAB PO SCH (08:36)
[2021-06-10] MEDS: HumaLOG SC SCH ×2 (08:36→21:39)
[2021-06-10] MEDS: ZESTRIL TAB 5 MG PO SCH (08:36)
[2021-06-10] MEDS: CHECK PATCH XX SCH ×2 (08:37→20:44)
[2021-06-10] MEDS: ULTRAM PO PRN (11:06)
[2021-06-10 13:28] LABS: CREATININE 0.94 mg/dL (0.55-1.02); VANCOMYCIN,TROUGH 16.5 ug/mL (15-20)
[2021-06-10] MEDS ORDERED: BUTT CREAM (COMPOUND) TOP PRN (14:32)
--- NOTE | 2021-06-10 15:37 | PCM.PROG ---
Progress Note Progress Note for Day of Date of Exam: 06/10/21 Subjective Subjective: Mrs. Mendes is a 51 year old female who is s/p left foot I&D with partial 1st ray resection, DOS was 06/08. Patient with a Hx of right LE charcot. She is doing well with no pain. No issues over night. She denies any f/c/n/v/sob/calf pain. No new complaints this am. Patient requests more pain meds this am. She did well overnight and no other complaints. Past Medical Family Social History Past Med/Fam/Surg Hx: No changes since H&P Allergies: Allergies aspirin Allergy (Verified 06/07/21 16:09) Penicillins Allergy (Verified 06/07/21 16:09) Review of Systems ROS: No change since H&P Vital Signs and I&O's Vital Signs: Temperature 98.1 F Pulse Rate [Left Radial] 81 Pulse Rate 81 Respiratory Rate 20 Blood Pressure [Right Arm] 127/73 Blood Pressure 110/59 O2 Sat by Pulse Oximetry 94 Intake and Output: Intake & Output 06/08/21 06/09/21 06/10/21 06/11/21 11:59 11:59 11:59 11:59 Intake Total 1140 / 1140 1802 / 1802 2248 / 2248 Output Total 649 / 649 Balance 1140 / 1140 1153 / 1153 2248 / 2248 Physical Exam Oriented: Normal, Time and Person Eyes: Normal Ear: Normal Nose: Normal Throat: Normal Respiratory: Normal Cardiovascular: Normal Auscultation: Bowel Sounds: Normal Tenderness: Normal Skin: Wound Musculoskeletal: Left and Foot (ulcer noted on the plantar surface, no drainge, surrounding erythema ) Psychiatric: Anxiety Mood Description: Anxious Affect: Anxious Speech Pattern: Clear and Appropriate Laboratory and Diagnostics Result Diagrams: 06/10/21 04:10 06/10/21 13:05 Labs: 06/08/21 15:00 Foot - Left Wound Gram Stain - Final 06/08/21 15:00 Foot - Left Wound Culture - Preliminary 06/07/21 16:55 Blood Blood Culture - Preliminary 06/07/21 16:46 Blood Blood Culture - Preliminary Laboratory WBC 6.3 X10^3/uL (3.6-10.0) 06/10/21 04:10 RBC 3.87 X10^6/uL (3.5-5.4) 06/10/21 04:10 Hgb 9.8 g/dL (12.0-16.0) L 06/10/21 04:10 Hct 29.9 % (36.0-47.0) L 06/10/21 04:10 MCV 77.4 fL (80.0-100.0) L 06/10/21 04:10 MCH 25.4 pg (27.0-34.0) L 06/10/21 04:10 MCHC 32.8 g/dL (33.0-35.0) L 06/10/21 04:10 RDW 18.1 % (11.6-16.5) H 06/10/21 04:10 Plt Count 157 X10^3/uL (150.0-450.0) 06/10/21 04:10 MPV 7.7 fL (7.4-11.0) 06/10/21 04:10 Neut % (Auto) 63.4 % (42.0-75.0) 06/10/21 04:10 Lymph % (Auto) 25.2 % (21.0-51.0) 06/10/21 04:10 [place] % (Auto) 7.7 % (0.0-13.0) 06/10/21 04:10 Eos % (Auto) 3.4 % (0.9-2.9) H 06/10/21 04:10 Baso % (Auto) 0.3 % (0.2-1.0) 06/10/21 04:10 Neut # (Auto) 4.0 x10^3/uL (2.2-4.8) 06/10/21 04:10 Lymph # (Auto) 1.6 X10^3/uL (1.3-2.9) 06/10/21 04:10 [place] # (Auto) 0.5 x10^3/uL (0.3-0.8) 06/10/21 04:10 Eos # (Auto) 0.2 x10^3/uL (0.0-0.2) 06/10/21 04:10 Baso # (Auto) 0.0 X10^3/uL (0.0-0.1) 06/10/21 04:10 Absolute Nucleated RBC 0.1 /100WBC 06/10/21 04:10 ESR 49 MM/HOUR (0-20) H 06/07/21 16:46 Sodium 143 mmol/L (136-145) 06/10/21 04:10 Corrected Sodium TNP 06/10/21 04:10 Potassium 4.0 mmol/L (3.5-5.1) 06/10/21 04:10 Chloride 108 mmol/L (98-107) H 06/10/21 04:10 Carbon Dioxide 28.0 mmol/L (21-32) 06/10/21 04:10 BUN 14 mg/dL (7-18) 06/10/21 04:10 Creatinine 0.94 mg/dL (0.55-1.02) 06/10/21 13:05 Est GFR (MDRD) Af Amer > 60 (>60) 06/10/21 04:10 Est GFR (MDRD) Non-Af > 60 (>60) 06/10/21 04:10 Glucose 103 mg/dL (65-99) H 06/10/21 04:10 POC Glucose (mg/dL) 123 mg/dL (65-99) H 06/10/21 11:32 Lactic Acid 1.3 mmol/L (0.4-2.0) 06/07/21 16:46 Calcium 8.3 mg/dL (8.5-10.1) L 06/10/21 04:10 Corrected Calcium 9.3 mg/dL (8.5-10.1) 06/10/21 04:10 Total Bilirubin 0.20 mg/dL (0.2-1.0) 06/10/21 04:10 AST 17 Units/L (15-37) 06/10/21 04:10 ALT 17 Units/L (12-78) 06/10/21 04:10 Alkaline Phosphatase 101 Units/L (46-116) 06/10/21 04:10 C-Reactive Protein 21.40 mg/L (0-3.0) H 06/07/21 16:46 Total Protein 6.8 g/dL (6.4-8.2) 06/10/21 04:10 Albumin 2.8 g/dL (3.4-5.0) L 06/10/21 04:10 Globulin 4.0 g/dL (2.5-4.5) 06/10/21 04:10 Albumin/Globulin Ratio 0.7 Ratio (1.1-2.1) L 06/10/21 04:10 Vancomycin Trough 16.5 ug/mL (15-20) 06/10/21 13:05 SARS CoV-2 RNA Rapid ABDIAZIZ Negative (NEGATIVE) 06/07/21 16:34 Tissue Pathology To follow 06/08/21 15:00 Plan (1) Left foot pain: Status: Acute Plan: Patient has pain meds ordered PRN and a Duragesic Patch on. She was told to ask for pain meds if she needed any for improved pain control. (2) Infection of left foot: Status: Acute Plan: Assessment: Mrs. Mendes is s/p left foot surgery with partial 1st ray resection, DOS was 06/08. Left foot dressing is c/d/I with no strike through. She is with VSS, NAD, and no leukocytosis. Vascular studies shows arterial disease. CT on the left showed likely 1st metatarsal OM, this exam was prior to surgery. Right CT shows distal hardware looseing with charcot changes. Currently showing GPC on gram stain. She is currently on Vanc. She has abx beads in the left foot wound. Plan: Dressing on the left to be kept intact. NWB on the left. PT consult Pending final micro Pending pathology. Tentative plan for the OR on Friday this week Will Monitor Please do not hesitate to contact me with any questions or concerns. Yung Jonas, Ankle and Foot fellow [phone] (3) Cellulitis and abscess of foot: Status: Acute Plan: Continue current treatment. (4) Charcot foot due to diabetes mellitus: Status: Acute (5) HTN (hypertension): Status: Acute Qualifiers: Hypertension type: primary hypertension Qualified Code(s): I10 - Essent ial (primary) hypertension Plan: Continue current Rx (6) HLD (hyperlipidemia): Status: Acute Qualifiers: Hyperlipidemia type: unspecified Qualified Code(s): E78.5 - Hyperlipidemia, unspecified (7) Anxiety: Status: Acute (8) Depression: Status: Acute Qualifiers: Depression Type: unspecified Qualified Code(s): F32.A - Depression, unspecified
[2021-06-10] MEDS: COLACE CAP 100 MG PO SCH (21:31)
[2021-06-11] MEDS: ROXICODONE TAB 5 MG PO PRN ×5 (00:17→20:08)
[2021-06-11 04:54] LABS: BASOPHILS % (AUTO) 0.3 % (0.2-1.0); EOSINOPHILS # (AUTO) 0.3 x10^3/uL (0.0-0.2); EOSINOPHILS % (AUTO) 3.7 % (0.9-2.9); HEMATOCRIT 32.4 % (36.0-47.0); HEMOGLOBIN 10.6 g/dL (12.0-16.0); LYMPHOCYTES # (AUTO) 1.8 X10^3/uL (1.3-2.9); LYMPHOCYTES % (AUTO) 26.5 % (21.0-51.0); MEAN CORPUSCULAR HEMOGLOBIN 25.3 pg (27.0-34.0); MEAN CORPUSCULAR HGB CONC 32.6 g/dL (33.0-35.0); MEAN CORPUSCULAR VOLUME 77.8 fL (80.0-100.0); MEAN PLATELET VOLUME 7.8 fL (7.4-11.0); MONOCYTES # (AUTO) 0.5 x10^3/uL (0.3-0.8); MONOCYTES % (AUTO) 7.4 % (0.0-13.0); NEUTROPHILS # (AUTO) 4.3 x10^3/uL (2.2-4.8); NEUTROPHILS % (AUTO) 62.1 % (42.0-75.0); PLATELET COUNT 172 X10^3/uL (150.0-450.0); RED BLOOD COUNT 4.17 X10^6/uL (3.5-5.4); RED CELL DISTRIBUTION WIDTH 18.1 % (11.6-16.5); WHITE BLOOD COUNT 6.9 X10^3/uL (3.6-10.0)
[2021-06-11 05:13] LABS: ALANINE AMINOTRANSFERASE 18 Units/L (12-78); ALBUMIN 2.9 g/dL (3.4-5.0); ALKALINE PHOSPHATASE 102 Units/L (46-116); ASPARTATE AMINO TRANSFERASE 13 Units/L (15-37); BLOOD UREA NITROGEN 13 mg/dL (7-18); CALCIUM 8.5 mg/dL (8.5-10.1); CARBON DIOXIDE 25.6 mmol/L (21-32); CHLORIDE 106 mmol/L (98-107); COR CA(FOR HYPOALB) 9.4 mg/dL (8.5-10.1); COR NA(FOR HYPERGLY) 141 mmol/L (136-145); CREATININE 0.81 mg/dL (0.55-1.02); SODIUM 141 mmol/L (136-145); eGFR NON BLACK RACES > 60 (>60)
[2021-06-11] MEDS: VISTARIL PO PRN (05:48)
[2021-06-11] MEDS: VANCOMYCIN IV *PREMIX 1 G/200 ML BAG 1 G/200 ML PIGGYBACK IV SCH ×3 (05:49→21:09)
[2021-06-11] MEDS: NEURONTIN CAP 400 MG PO SCH (08:41)
[2021-06-11] MEDS: CHECK PATCH XX SCH ×2 (08:41→21:06)
[2021-06-11] MEDS: COREG TAB 6.25 MG PO SCH ×2 (08:41→21:13)
[2021-06-11] MEDS: BUSPAR PO SCH ×2 (08:41→21:14)
[2021-06-11] MEDS: EFFEXOR TAB 75 MG (BID DOSING) PO SCH ×2 (08:41→21:13)
[2021-06-11] MEDS: CRESTOR TAB 10 MG PO SCH (08:41)
[2021-06-11] MEDS: HumaLOG SC SCH ×2 (08:41→21:06)
[2021-06-11] MEDS: SYNTHROID 75 mcg TAB PO SCH (08:42)
[2021-06-11] MEDS: TRADJENTA PO SCH (08:42)
[2021-06-11] MEDS: ZESTRIL TAB 5 MG PO SCH (08:42)
[2021-06-11] MEDS: ZOFRAN TAB 4 MG SL PRN (08:42)
[2021-06-11] MEDS: BENADRYL CAP/TAB 25 MG PO PRN ×2 (13:16→21:13)
[2021-06-11] MEDS: NYSTATIN POWDER TOP SCH ×2 (14:13→21:08)
[2021-06-11] MEDS: ULTRAM PO PRN (15:40)
--- NOTE | 2021-06-11 15:45 | PCM.PROG ---
Progress Note Progress Note for Day of Date of Exam: 06/11/21 Subjective Subjective: Patient seen at bedside, reports doing well. She states her pain has been well controlled. She does report nausea and itching with antibiotics. Denies vomiting or diarrhea. 06/08/21: s/p left foot I&D with partial 1st ray resection. Patient with a Hx of right LE charcot. Plan: follow Podiatry recommendations, continue pain control, PT/OT as tolerated. Continue IV Vanc, will add zofran and benadryl prn. Follow wound and blood Cx. Continue home meds. Patient is going to have right foot surgery on Fri as per Podiatry plans. Monitor AM labs and imaging. Past Medical Family Social History Past Med/Fam/Surg Hx: No changes since H&P Allergies: Allergies aspirin Allergy (Verified 06/07/21 16:09) Penicillins Allergy (Verified 06/07/21 16:09) Review of Systems ROS: No change since H&P Vital Signs and I&O's Vital Signs: Temperature 98.1 F Pulse Rate [Left Radial] 83 Pulse Rate 81 Respiratory Rate 18 Blood Pressure [Right Arm] 115/52 Blood Pressure 110/59 O2 Sat by Pulse Oximetry 97 Intake and Output: Intake & Output 06/08/21 06/09/21 06/10/21 06/11/21 23:59 23:59 23:59 23:59 Intake Total 1622 / 1622 1220 / 1775 3038 / 3038 550 / 550 Output Total 649 / 649 Balance 973 / 973 1220 / 1775 3038 / 3038 550 / 550 Physical Exam Oriented: Normal, Time and Person Eyes: Normal Ear: Normal Nose: Normal Throat: Normal Respiratory: Normal Cardiovascular: Normal Auscultation: Bowel Sounds: Normal Tenderness: Normal Skin: Wound Musculoskeletal: Left and Foot (wrapped in naeem bandage ) Psychiatric: Normal Mood Description: Calm Affect: Normal Speech Pattern: Clear and Appropriate Laboratory and Diagnostics Result Diagrams: 06/11/21 03:58 06/11/21 03:58 Labs: 06/08/21 15:00 Foot - Left Wound Gram Stain - Final 06/08/21 15:00 Foot - Left Wound Culture - Final 06/07/21 16:55 Blood Blood Culture - Preliminary 06/07/21 16:46 Blood Blood Culture - Preliminary Laboratory WBC 6.9 X10^3/uL (3.6-10.0) 06/11/21 03:58 RBC 4.17 X10^6/uL (3.5-5.4) 06/11/21 03:58 Hgb 10.6 g/dL (12.0-16.0) L 06/11/21 03:58 Hct 32.4 % (36.0-47.0) L 06/11/21 03:58 MCV 77.8 fL (80.0-100.0) L 06/11/21 03:58 MCH 25.3 pg (27.0-34.0) L 06/11/21 03:58 MCHC 32.6 g/dL (33.0-35.0) L 06/11/21 03:58 RDW 18.1 % (11.6-16.5) H 06/11/21 03:58 Plt Count 172 X10^3/uL (150.0-450.0) 06/11/21 03:58 MPV 7.8 fL (7.4-11.0) 06/11/21 03:58 Neut % (Auto) 62.1 % (42.0-75.0) 06/11/21 03:58 Lymph % (Auto) 26.5 % (21.0-51.0) 06/11/21 03:58 [place] % (Auto) 7.4 % (0.0-13.0) 06/11/21 03:58 Eos % (Auto) 3.7 % (0.9-2.9) H 06/11/21 03:58 Baso % (Auto) 0.3 % (0.2-1.0) 06/11/21 03:58 Neut # (Auto) 4.3 x10^3/uL (2.2-4.8) 06/11/21 03:58 Lymph # (Auto) 1.8 X10^3/uL (1.3-2.9) 06/11/21 03:58 [place] # (Auto) 0.5 x10^3/uL (0.3-0.8) 06/11/21 03:58 Eos # (Auto) 0.3 x10^3/uL (0.0-0.2) H 06/11/21 03:58 Baso # (Auto) 0.0 X10^3/uL (0.0-0.1) 06/11/21 03:58 Absolute Nucleated RBC 0.1 /100WBC 06/11/21 03:58 ESR 49 MM/HOUR (0-20) H 06/07/21 16:46 Sodium 141 mmol/L (136-145) 06/11/21 03:58 Corrected Sodium 141 mmol/L (136-145) 06/11/21 03:58 Potassium 3.7 mmol/L (3.5-5.1) 06/11/21 03:58 Chloride 106 mmol/L (98-107) 06/11/21 03:58 Carbon Dioxide 25.6 mmol/L (21-32) 06/11/21 03:58 BUN 13 mg/dL (7-18) 06/11/21 03:58 Creatinine 0.81 mg/dL (0.55-1.02) 06/11/21 03:58 Est GFR (MDRD) Af Amer > 60 (>60) 06/11/21 03:58 Est GFR (MDRD) Non-Af > 60 (>60) 06/11/21 03:58 Glucose 119 mg/dL (65-99) H 06/11/21 03:58 POC Glucose (mg/dL) 148 mg/dL (65-99) H 06/11/21 11:20 Lactic Acid 1.3 mmol/L (0.4-2.0) 06/07/21 16:46 Calcium 8.5 mg/dL (8.5-10.1) 06/11/21 03:58 Corrected Calcium 9.4 mg/dL (8.5-10.1) 06/11/21 03:58 Total Bilirubin 0.20 mg/dL (0.2-1.0) 06/11/21 03:58 AST 13 Units/L (15-37) L 06/11/21 03:58 ALT 18 Units/L (12-78) 06/11/21 03:58 Alkaline Phosphatase 102 Units/L (46-116) 06/11/21 03:58 C-Reactive Protein 21.40 mg/L (0-3.0) H 06/07/21 16:46 Total Protein 7.0 g/dL (6.4-8.2) 06/11/21 03:58 Albumin 2.9 g/dL (3.4-5.0) L 06/11/21 03:58 Globulin 4.1 g/dL (2.5-4.5) 06/11/21 03:58 Albumin/Globulin Ratio 0.7 Ratio (1.1-2.1) L 06/11/21 03:58 Vancomycin Trough 16.5 ug/mL (15-20) 06/10/21 13:05 SARS CoV-2 RNA Rapid ABDIAZIZ Negative (NEGATIVE) 06/07/21 16:34 Tissue Pathology To follow 06/08/21 15:00 Plan (1) Left foot pain: Status: Acute (2) Infection of left foot: Status: Acute Plan: (3) Cellulitis and abscess of foot: Status: Acute Plan: Continue current treatment. (4) Charcot foot due to diabetes mellitus: Status: Acute (5) HTN (hypertension): Status: Acute Qualifiers: Hypertension type: primary hypertension Qualified Code(s): I10 - Essential (primary) hypertension Plan: Continue current Rx (6) HLD (hyperlipidemia): Status: Acute Qualifiers: Hyperlipidemia type: unspecified Qualified Code(s): E78.5 - Hyperlipidemia, unspecified (7) Anxiety: Status: Acute (8) Depression: Status: Acute Qualifiers: Depression Type: unspecified Qualified Code(s): F32.A - Depression, unspecified
[2021-06-11] MEDS: COLACE CAP 100 MG PO SCH (21:13)
--- NOTE | 2021-06-11 23:55 | DR.CONSULT ---
CONSULT Consultation for Day of: Date: 06/11/21 Chief Complaint Chief Complaint: 51 year old female with diabetes and significant problem with both of her feet. Hx of open reduction, internal fixation of a distal right fibula fracture involving the foot as well. She has had a left great toe amputation in the past and presented with an infection of the metatarsal head of right great toe requiring debridement. Currently on IV antibiotics. She has had ultrasound Doppler studies showing monophasic flow below the knee. Podiatry is planning removal of potentially infected Hardware of the right foot and has asked me to see her and consultation to assess her arterial flow of the lower extremities. Allergies Allergies Allergy/AdvReac Type Severity Reaction Status Date / Time aspirin Allergy Verified 06/07/21 16:09 Penicillins Allergy Verified 06/07/21 16:09 History of Present Illness History of Present Illness: See chief complaint above. Past Medical History Past Medical History: Depression, Diabetes, Dyslipidemia, Hypertension and Hypothyroidism Additional Medical History: Charcoot foot Past Surgical History Surgical History: Abdominal Surgery, Appendectomy, Hysterectomy, Tonsillectomy and Other Additional Surgical History: Right charcot reconstruction. Family History Family Medical History: Diabetes Mellitus, Cancer and Coronary Artery Disease Social History Does patient currently use any type of tobacco product: No Have you used tobacco products in the last 12 months: No Type of Tobacco Use: None Does any household member use tobacco: No Alcohol Use: None Drug Use: Prescription Drugs Medications Home Medications: aspirin Allergy (Verified 06/07/21 16:09) Penicillins Allergy (Verified 06/07/21 16:09) CONTINUE taking the following medications buspirone 15 mg PO BID 06/07/21 [History] carvedilol 6.25 mg PO BID 06/07/21 [History] clotrimazole-betamethasone 1 applic TOPICAL BID 06/07/21 [History] dicyclomine 20 mg PO BID 06/07/21 [History] estradiol 1 mg PO DAILY 06/07/21 [History] estradiol 2 applic VAGINAL DAILY 06/07/21 [History] fentanyl 1 patch TRANSDERMAL Q72H 06/07/21 [History] gabapentin 800 mg PO QAM 06/07/21 [History] insulin aspart U-100 [Novolog Flexpen U-100 Insulin] 12 unit SUBCUT TID 06/07/21 [History] insulin degludec [Tresiba FlexTouch U-100] 60 unit SUBCUT QHS 06/07/21 [History] levothyroxine 75 mcg PO DAILY 06/07/21 [History] linagliptin [Tradjenta] 5 mg PO DAILY 06/07/21 [History] linezolid 600 mg PO DAILY 06/07/21 [History] lisinopril 2.5 mg PO DAILY 06/07/21 [History] montelukast 10 mg PO DAILY 06/07/21 [History] oxycodone-acetaminophen 1 tab PO BID 06/07/21 [History] progesterone micronized 300 mg PO QHS 06/07/21 [History] rosuvastatin 5 mg PO DAILY 06/07/21 [History] sulfamethoxazole-trimethoprim 1 tab PO BID 06/07/21 [History] tramadol 100 mg PO BID 06/07/21 [History] venlafaxine 75 mg PO BID 06/07/21 [History] Review of Systems Constitutional: No Symptoms Reported Eyes: No Symptoms Reported ENT: No Symptoms Reported Respiratory: No Symptoms Reported and SOB with Excertion Cardiovascular: No Symptoms Reported Gastrointestinal: No Symptoms Reported Genitourinary: No Symptoms Reported Musculoskeletal: Leg Pain ( See above. C/O left calf rest pain at night.) Neurological: Numbness (hx of neuropathy both feet) Physical Exam Vital Signs: Temperature 98.2 F Pulse Rate [Left Radial] 90 Pulse Rate 81 Respiratory Rate 20 Blood Pressure [Right Arm] 128/80 Blood Pressure 110/59 O2 Sat by Pulse Oximetry 97 Oriented: Normal, Time, Person and Place Eyes: Normal Ear: Normal Nose: Normal Throat: Normal Respiratory: Rhonchi Throughout Cardiovascular: Normal and Other (Pulses intact Both groins . No palpable distal pulses either ankle. ) : Normal Auscultation: Bowel Sounds: Normal Palpation: Normal Skin: Wound (open wound left foot at site of previous left great toe amputation) Musculoskeletal: Foot (tenderness to the right plantar foot with no redness, left foot with open wound as above) Psychiatric: Normal Mood Description: Depressed Speech Pattern: Clear Plan (1) Left foot pain: Status: Acute (2) Infection of left foot: Status: Acute Plan: continue antibiotics as you have already chosen. I will obtain CT angiogram to assess possible intervention of both lower extremities .Continue all of her usual home medications. (3) Cellulitis and abscess of foot: Status: Acute (4) Charcot foot due to diabetes mellitus: Status: Acute (5) HTN (hypertension): Status: Acute Qualifiers: Hypertension type: primary hypertension Qualified Code(s): I10 - Essential (primary) hypertension (6) HLD (hyperlipidemia): Status: Acute Qualifiers: Hyperlipidemia type: unspecified Qualified Code(s): E78.5 - Hyperlipidemia, unspecified (7) Anxiety: Status: Acute (8) Depression: Status: Acute Qualifiers: Depression Type: unspecified Qualified Code(s): F32.A - Depression, unspecified
[2021-06-12] MEDS: ROXICODONE TAB 5 MG PO PRN ×6 (00:13→22:54)
[2021-06-12] MEDS: ZOFRAN INJ 4 MG VIAL IVP PRN ×2 (04:38→12:00)
[2021-06-12 04:51] LABS: BASOPHILS % (AUTO) 0.3 % (0.2-1.0); EOSINOPHILS # (AUTO) 0.3 x10^3/uL (0.0-0.2); EOSINOPHILS % (AUTO) 3.2 % (0.9-2.9); HEMATOCRIT 32.8 % (36.0-47.0); HEMOGLOBIN 10.7 g/dL (12.0-16.0); LYMPHOCYTES % (AUTO) 23.3 % (21.0-51.0); MEAN CORPUSCULAR HEMOGLOBIN 25.3 pg (27.0-34.0); MEAN CORPUSCULAR HGB CONC 32.5 g/dL (33.0-35.0); MEAN CORPUSCULAR VOLUME 77.8 fL (80.0-100.0); MEAN PLATELET VOLUME 7.9 fL (7.4-11.0); MONOCYTES # (AUTO) 0.6 x10^3/uL (0.3-0.8); MONOCYTES % (AUTO) 7.1 % (0.0-13.0); NEUTROPHILS # (AUTO) 5.8 x10^3/uL (2.2-4.8); NEUTROPHILS % (AUTO) 66.1 % (42.0-75.0); PLATELET COUNT 163 X10^3/uL (150.0-450.0); RED BLOOD COUNT 4.22 X10^6/uL (3.5-5.4); RED CELL DISTRIBUTION WIDTH 17.8 % (11.6-16.5); WHITE BLOOD COUNT 8.7 X10^3/uL (3.6-10.0)
[2021-06-12 05:00] LABS: BLOOD UREA NITROGEN 12 mg/dL (7-18); CALCIUM 8.6 mg/dL (8.5-10.1); CARBON DIOXIDE 27.1 mmol/L (21-32); CHLORIDE 102 mmol/L (98-107); COR NA(FOR HYPERGLY) 139 mmol/L (136-145); CREATININE 0.84 mg/dL (0.55-1.02); SODIUM 138 mmol/L (136-145); eGFR NON BLACK RACES > 60 (>60)
[2021-06-12 06:32] LABS: CREATININE 0.83 mg/dL (0.55-1.02)
[2021-06-12 06:35] LABS: VANCOMYCIN,TROUGH 21.5 ug/mL (15-20)
[2021-06-12] MEDS: TRADJENTA PO SCH (08:15)
[2021-06-12] MEDS: CHECK PATCH XX SCH ×2 (08:16→20:00)
[2021-06-12] MEDS: BUSPAR PO SCH ×2 (08:17→20:00)
[2021-06-12] MEDS: COREG TAB 6.25 MG PO SCH ×2 (08:17→20:00)
[2021-06-12] MEDS: HumaLOG SC SCH ×2 (08:18→20:01)
[2021-06-12] MEDS: SYNTHROID 75 mcg TAB PO SCH (08:19)
[2021-06-12] MEDS: EFFEXOR TAB 75 MG (BID DOSING) PO SCH ×2 (08:19→20:00)
[2021-06-12] MEDS: CRESTOR TAB 10 MG PO SCH (08:19)
[2021-06-12] MEDS: NEURONTIN CAP 400 MG PO SCH (08:20)
[2021-06-12] MEDS: ZESTRIL TAB 5 MG PO SCH (08:20)
[2021-06-12] MEDS: NYSTATIN POWDER TOP SCH ×2 (08:22→20:01)
[2021-06-12] MEDS: VANCOMYCIN IV *PREMIX 1 G/200 ML BAG 1 G/200 ML PIGGYBACK IV SCH ×2 (08:22→21:00)
[2021-06-12] MEDS: VISTARIL PO PRN ×2 (08:38→20:02)
[2021-06-12] MEDS ORDERED: NS 100 ML IV 100 ML ONE (09:29)
--- NOTE | 2021-06-12 11:58 | PCM.PROG ---
Progress Note Progress Note for Day of Date of Exam: 06/12/21 Subjective Subjective: Patient seen at bedside, reports doing well. She did work with PT a little bit yesterday. She states her pain has been well controlled.Denies vomiting or diarrhea. She was seen by Dr Glez yesterday for further evaluation for PVD. CT angio is ordered. 06/08/21: s/p left foot I&D with partial 1st ray resection. Patient with a Hx of right LE charcot. Wound and blood Cx: no growth Plan: follow Podiatry and Vascular recommendations, continue pain control, PT/OT as tolerated. Continue IV Vanc. Follow CT results. Confirm with Podiatry about patient being scheduled for surgery tomorrow. Monitor AM labs and imaging. Past Medical Family Social History Past Med/Fam/Surg Hx: No changes since H&P Allergies: Allergies aspirin Allergy (Verified 06/07/21 16:09) Penicillins Allergy (Verified 06/07/21 16:09) Review of Systems ROS: No change since H&P Vital Signs and I&O's Vital Signs: Temperature 98.2 F Pulse Rate [Left Radial] 81 Pulse Rate 81 Respiratory Rate 20 Blood Pressure [Right Arm] 118/60 Blood Pressure 110/59 O2 Sat by Pulse Oximetry 96 Intake and Output: Intake & Output 06/09/21 06/10/21 06/11/21 06/12/21 23:59 23:59 23:59 23:59 Intake Total 1220 / 1775 3038 / 3038 1250 / 1250 100 / 100 Balance 1220 / 1775 3038 / 3038 1250 / 1250 100 / 100 Physical Exam Oriented: Normal Eyes: Normal Ear: Normal Nose: Normal Throat: Normal Respiratory: Normal Cardiovascular: Normal and Other (Pulses intact Both groins . No palpable distal pulses either ankle. ) : Normal Auscultation: Bowel Sounds: Normal Tenderness: Normal Skin: Wound (open wound left foot at site of previous left great toe amputation) Musculoskeletal: Foot (tenderness to the right plantar foot with no redness, left foot with open wound as above) Psychiatric: Normal Mood Description: Depressed and Anxious Affect: Normal Speech Pattern: Clear Laboratory and Diagnostics Result Diagrams: 06/12/21 03:54 06/12/21 04:00 Labs: 06/08/21 15:00 Foot - Left Wound Gram Stain - Final 06/08/21 15:00 Foot - Left Wound Culture - Final 06/07/21 16:55 Blood Blood Culture - Preliminary 06/07/21 16:46 Blood Blood Culture - Preliminary Laboratory WBC 8.7 X10^3/uL (3.6-10.0) 06/12/21 03:54 RBC 4.22 X10^6/uL (3.5-5.4) 06/12/21 03:54 Hgb 10.7 g/dL (12.0-16.0) L 06/12/21 03:54 Hct 32.8 % (36.0-47.0) L 06/12/21 03:54 MCV 77.8 fL (80.0-100.0) L 06/12/21 03:54 MCH 25.3 pg (27.0-34.0) L 06/12/21 03:54 MCHC 32.5 g/dL (33.0-35.0) L 06/12/21 03:54 RDW 17.8 % (11.6-16.5) H 06/12/21 03:54 Plt Count 163 X10^3/uL (150.0-450.0) 06/12/21 03:54 MPV 7.9 fL (7.4-11.0) 06/12/21 03:54 Neut % (Auto) 66.1 % (42.0-75.0) 06/12/21 03:54 Lymph % (Auto) 23.3 % (21.0-51.0) 06/12/21 03:54 [place] % (Auto) 7.1 % (0.0-13.0) 06/12/21 03:54 Eos % (Auto) 3.2 % (0.9-2.9) H 06/12/21 03:54 Baso % (Auto) 0.3 % (0.2-1.0) 06/12/21 03:54 Neut # (Auto) 5.8 x10^3/uL (2.2-4.8) H 06/12/21 03:54 Lymph # (Auto) 2.0 X10^3/uL (1.3-2.9) 06/12/21 03:54 [place] # (Auto) 0.6 x10^3/uL (0.3-0.8) 06/12/21 03:54 Eos # (Auto) 0.3 x10^3/uL (0.0-0.2) H 06/12/21 03:54 Baso # (Auto) 0.0 X10^3/uL (0.0-0.1) 06/12/21 03:54 Absolute Nucleated RBC 0.0 /100WBC 06/12/21 03:54 ESR 49 MM/HOUR (0-20) H 06/07/21 16:46 Sodium 138 mmol/L (136-145) 06/12/21 03:54 Corrected Sodium 139 mmol/L (136-145) 06/12/21 03:54 Potassium 3.9 mmol/L (3.5-5.1) 06/12/21 03:54 Chloride 102 mmol/L (98-107) 06/12/21 03:54 Carbon Dioxide 27.1 mmol/L (21-32) 06/12/21 03:54 BUN 12 mg/dL (7-18) 06/12/21 03:54 Creatinine 0.83 mg/dL (0.55-1.02) 06/12/21 04:00 Est GFR (MDRD) Af Amer > 60 (>60) 06/12/21 03:54 Est GFR (MDRD) Non-Af > 60 (>60) 06/12/21 03:54 Glucose 122 mg/dL (65-99) H 06/12/21 03:54 POC Glucose (mg/dL) 142 mg/dL (65-99) H 06/12/21 10:55 Lactic Acid 1.3 mmol/L (0.4-2.0) 06/07/21 16:46 Calcium 8.6 mg/dL (8.5-10.1) 06/12/21 03:54 Corrected Calcium 9.4 mg/dL (8.5-10.1) 06/11/21 03:58 Total Bilirubin 0.20 mg/dL (0.2-1.0) 06/11/21 03:58 AST 13 Units/L (15-37) L 06/11/21 03:58 ALT 18 Units/L (12-78) 06/11/21 03:58 Alkaline Phosphatase 102 Units/L (46-116) 06/11/21 03:58 C-Reactive Protein 21.40 mg/L (0-3.0) H 06/07/21 16:46 Total Protein 7.0 g/dL (6.4-8.2) 06/11/21 03:58 Albumin 2.9 g/dL (3.4-5.0) L 06/11/21 03:58 Globulin 4.1 g/dL (2.5-4.5) 06/11/21 03:58 Albumin/Globulin Ratio 0.7 Ratio (1.1-2.1) L 06/11/21 03:58 Vancomycin Trough 21.5 ug/mL (15-20) H* 06/12/21 04:00 SARS CoV-2 RNA Rapid ABDIAZIZ Negative (NEGATIVE) 06/07/21 16:34 Tissue Pathology To follow 06/08/21 15:00 Plan (1) Left foot pain: Status: Acute (2) Infection of left foot: Status: Acute (3) Cellulitis and abscess of foot: Status: Acute Plan: Continue current treatment. (4) Charcot foot due to diabetes mellitus: Status: Acute (5) HTN (hypertension): Status: Acute Qualifiers: Hypertension type: primary hypertension Qualified Code(s): I10 - Essential (primary) hypertension Plan: Continue current Rx (6) HLD (hyperlipidemia): Status: Acute Qualifiers: Hyperlipidemia type: unspecified Qualified Code(s): E78.5 - Hyperlipidemia, unspecified (7) Anxiety: Status: Acute (8) Depression: Status: Acute Qualifiers: Depression Type: unspecified Qualified Code(s): F32.A - Depression, unspecified
--- NOTE | 2021-06-12 12:27 | CT ---
HISTORYREST PAIN; CHARCOT JOINTS, LEFT FOOT CELLULITIS WITH ABSCESSSTUDYCTA abdomen, pelvis, and bilateral lower extremities without and with IV contrastCOMPARISONUltrasound 06/08/2021TECHNIQUEMultiple axial images of the abdomen, pelvis, and bilateral lower extremities were obtained from the lung bases to the plantar surface of the feet prior to and following the administration of IV contrast. 150 cc Omnipaque 350 IV contrast. 3D reconstructions were performed utilizing radial maximum intensity projection imaging. Dose reduction techniques including Automated Exposure Control (AEC) and adjustment of mA and kV were utilized.FINDINGSMuch of the abdomen is excluded on the [id number]. There is likely fatty infiltration of the liver and hepatosplenomegaly. Visualized portions of the gallbladder appear normal. Pancreas appears normal. No adrenal nodules are seen. No renal, ureteral, or bladder abnormality is seen. Multiple phleboliths are seen in the pelvis. No bowel dilation is seen. Mild lymphadenopathy is seen in the pelvis but this could be reactive. No adnexal masses are seen. Shotty reactive groin lymph nodes are seen.Abdominal aorta: Abdominal aorta is normal in size without atherosclerotic plaque. No stenosis is seen in the SMA or celiac axis. There is no renal artery stenosis. Normal enhancement is seen of the DIANA.Common iliac arteries: No abnormalities are seen.External iliac arteries: No abnormalities are seen.Right lower extremity: No plaque or stenosis. Three-vessel runoff is seen enhancing at the ankle. Probable osteomyelitis changes are seen in the distal tibia and talus. Probable loosening or infected hardware is present with lucency adjacent to the hardware. There is atrophy of the musculature in the right calf. There is a probable abscess in the plantar aspect of the heel that extends near area of destruction in the calcaneus. Abscess measures approximately 2.6 x 2.2 cm. Prominent arthritic changes are seen in 1st IP and MTP joints with mild arthritic changes in the midfoot. Likely prior resection of the distal aspect of the fibula.Left lower extremity: No plaque or stenosis. Three-vessel runoff is seen enhancing at the ankle. Minimal edema is seen in the plantar aspect of the heel. However, there is prominent edema seen adjacent to the region of the left 1st MTP joint. There appears to be destruction or resection of the distal half of the first metatarsal and the 1st toe. There are several rounded hyperdensities in this area that extend to the skin surface. There is a an abscess measuring 1.6 x 1.3 cm in this region with adjacent fistulous tract to the skin surface superiorly.IMPRESSIONNo evidence of atherosclerotic disease is seen in the bilateral lower extremities.Changes of cellulitis and osteomyelitis are seen in the region of the right ankle and left 1st ray as described above. There are small abscesses in these regions.Electronically signed by: Cecilio France (Jun 12, 2021 12:25:52)
--- NOTE | 2021-06-12 16:49 | PCM.PROG ---
Progress Note Progress Note for Day of Date of Exam: 06/12/21 Subjective Subjective: Mrs. Mendes is a 51 year old female who is s/p left foot surgery, DOS was 06/08. She is doing well with minimal pain today. Left foot dressing is c/d/i. She has has been NWB on the left. She understands she is going to the OR tomorrow. She denies any f/c/n/v/sob/calf pain. Past Medical Family Social History Past Med/Fam/Surg Hx: No changes since H&P Allergies: Allergies aspirin Allergy (Verified 06/07/21 16:09) Penicillins Allergy (Verified 06/07/21 16:09) Review of Systems ROS: No change since H&P Vital Signs and I&O's Vital Signs: Temperature 98.1 F Pulse Rate [Left Radial] 86 Pulse Rate 81 Respiratory Rate 22 Blood Pressure [Right Arm] 116/64 Blood Pressure 110/59 O2 Sat by Pulse Oximetry 95 Intake and Output: Intake & Output 06/09/21 06/10/21 06/11/21 06/12/21 23:59 23:59 23:59 23:59 Intake Total 1220 / 1775 3038 / 3038 1250 / 1250 1004 / 1004 Balance 1220 / 1775 3038 / 3038 1250 / 1250 1004 / 1004 Physical Exam Oriented: Normal Eyes: Normal Ear: Normal Nose: Normal Throat: Normal Respiratory: Normal Cardiovascular: Normal and Other (Pulses intact Both groins . No palpable distal pulses either ankle. ) : Normal Auscultation: Bowel Sounds: Normal Tenderness: Normal Skin: Wound (Left foot with the dorsal incision well coapted. Sutures intact. No macerated skin. Very minimal Serous drainage. Plantar wound sub 1st metatarsal shaft with the abx beads in place. Skin edges appear viable. No erythema and no edema. No malodor. ) Musculoskeletal: Foot (tenderness to the right plantar foot with no redness, left foot with open wound as above) Psychiatric: Normal Mood Description: Depressed and Anxious Affect: Normal Speech Pattern: Clear Laboratory and Diagnostics Result Diagrams: 06/12/21 03:54 06/12/21 04:00 Labs: 06/08/21 15:00 Foot - Left Wound Gram Stain - Final 06/08/21 15:00 Foot - Left Wound Culture - Final 06/07/21 16:55 Blood Blood Culture - Preliminary 06/07/21 16:46 Blood Blood Culture - Preliminary Laboratory WBC 8.7 X10^3/uL (3.6-10.0) 06/12/21 03:54 RBC 4.22 X10^6/uL (3.5-5.4) 06/12/21 03:54 Hgb 10.7 g/dL (12.0-16.0) L 06/12/21 03:54 Hct 32.8 % (36.0-47.0) L 06/12/21 03:54 MCV 77.8 fL (80.0-100.0) L 06/12/21 03:54 MCH 25.3 pg (27.0-34.0) L 06/12/21 03:54 MCHC 32.5 g/dL (33.0-35.0) L 06/12/21 03:54 RDW 17.8 % (11.6-16.5) H 06/12/21 03:54 Plt Count 163 X10^3/uL (150.0-450.0) 06/12/21 03:54 MPV 7.9 fL (7.4-11.0) 06/12/21 03:54 Neut % (Auto) 66.1 % (42.0-75.0) 06/12/21 03:54 Lymph % (Auto) 23.3 % (21.0-51.0) 06/12/21 03:54 [place] % (Auto) 7.1 % (0.0-13.0) 06/12/21 03:54 Eos % (Auto) 3.2 % (0.9-2.9) H 06/12/21 03:54 Baso % (Auto) 0.3 % (0.2-1.0) 06/12/21 03:54 Neut # (Auto) 5.8 x10^3/uL (2.2-4.8) H 06/12/21 03:54 Lymph # (Auto) 2.0 X10^3/uL (1.3-2.9) 06/12/21 03:54 [place] # (Auto) 0.6 x10^3/uL (0.3-0.8) 06/12/21 03:54 Eos # (Auto) 0.3 x10^3/uL (0.0-0.2) H 06/12/21 03:54 Baso # (Auto) 0.0 X10^3/uL (0.0-0.1) 06/12/21 03:54 Absolute Nucleated RBC 0.0 /100WBC 06/12/21 03:54 ESR 49 MM/HOUR (0-20) H 06/07/21 16:46 Sodium 138 mmol/L (136-145) 06/12/21 03:54 Corrected Sodium 139 mmol/L (136-145) 06/12/21 03:54 Potassium 3.9 mmol/L (3.5-5.1) 06/12/21 03:54 Chloride 102 mmol/L (98-107) 06/12/21 03:54 Carbon Dioxide 27.1 mmol/L (21-32) 06/12/21 03:54 BUN 12 mg/dL (7-18) 06/12/21 03:54 Creatinine 0.83 mg/dL (0.55-1.02) 06/12/21 04:00 Est GFR (MDRD) Af Amer > 60 (>60) 06/12/21 03:54 Est GFR (MDRD) Non-Af > 60 (>60) 06/12/21 03:54 Glucose 122 mg/dL (65-99) H 06/12/21 03:54 POC Glucose (mg/dL) 134 mg/dL (65-99) H 06/12/21 16:01 Lactic Acid 1.3 mmol/L (0.4-2.0) 06/07/21 16:46 Calcium 8.6 mg/dL (8.5-10.1) 06/12/21 03:54 Corrected Calcium 9.4 mg/dL (8.5-10.1) 06/11/21 03:58 Total Bilirubin 0.20 mg/dL (0.2-1.0) 06/11/21 03:58 AST 13 Units/L (15-37) L 06/11/21 03:58 ALT 18 Units/L (12-78) 06/11/21 03:58 Alkaline Phosphatase 102 Units/L (46-116) 06/11/21 03:58 C-Reactive Protein 21.40 mg/L (0-3.0) H 06/07/21 16:46 Total Protein 7.0 g/dL (6.4-8.2) 06/11/21 03:58 Albumin 2.9 g/dL (3.4-5.0) L 06/11/21 03:58 Globulin 4.1 g/dL (2.5-4.5) 06/11/21 03:58 Albumin/Globulin Ratio 0.7 Ratio (1.1-2.1) L 06/11/21 03:58 Vancomycin Trough 21.5 ug/mL (15-20) H* 06/12/21 04:00 SARS CoV-2 RNA Rapid ABDIAZIZ Negative (NEGATIVE) 06/07/21 16:34 Tissue Pathology To follow 06/08/21 15:00 Plan (1) Left foot pain: Status: Acute Plan: Patient has pain meds ordered PRN and a Duragesic Patch on. She was told to ask for pain meds if she needed any for improved pain control. (2) Cellulitis and abscess of foot: Status: Acute Plan: Mrs. Mendes is a DM female with a Hx of right LE Charcot and left foot partial 1st ray amp. Pain is well controlled. No growth on the wound culture. Wound is improved and appears ready for closure. She will benefit from a flap. She is with VSS and NAd. No leukocytosis. CTA with no evidence of significant vascular disease. Plan: NPO after midnight Plan or the OR on 06/13 for left surgery NWB on the left. PT evaluation Continue abx. Discussed the case with Dr. Glez, appreciate recommendations. We will also need to address the right LE charcot which will be done after the left foot surgery. Pending pathology. Will monitor. Please do not hesitate to contact me with questions or concerns. Yung [facility] [phone] (3) Infection of left foot: Status: Acute (4) Charcot foot due to diabetes mellitus: Status: Acute (5) HTN (hypertension): Status: Acute Qualifiers: Hypertension type: primary hypertension Qualified Code(s): I10 - Essential (primary) hypertension Plan: Continue current Rx (6) HLD (hyperlipidemia): Status: Acute Qualifiers: Hyperlipidemia type: unspecified Qualified Code(s): E78.5 - Hyperlipidemia, unspecified (7) Anxiety: Status: Acute (8) Depression: Status: Acute Qualifiers: Depression Type: unspecified Qualified Code(s): F32.A - Depression, unspecified
[2021-06-12] MEDS: COLACE CAP 100 MG PO SCH (20:00)
[2021-06-12] MEDS: BENADRYL CAP/TAB 25 MG PO PRN (20:01)
[2021-06-13] MEDS: ZOFRAN INJ 4 MG VIAL IVP PRN ×2 (01:23→08:26)
--- NOTE | 2021-06-13 07:51 | NOTE.SOAP ---
Soap Note Note for Day of Date of Exam: 06/12/21 Subjective Data Subjective Data: Patient unchanged since admitted with left foot requiring debridement and possibly infected Hardware right leg. Objective Data Temperature: 98 F Pulse Rate: 88 Respiratory Rate: 20 Blood Pressure: 134/83 O2 Sat by Pulse Oximetry: 95 Objective Data: CT angiogram shows no obvious stenosis of any arterial vessels. Assessment Assessment: May proceed with Podiatry planned procedures. Continue IV antibiotics. Plan Plan: See assessment above
[2021-06-13] MEDS: COREG TAB 6.25 MG PO SCH (08:26)
[2021-06-13] MEDS: HumaLOG SC SCH (08:27)
[2021-06-13] MEDS: BUSPAR PO SCH (08:38)
[2021-06-13] MEDS ORDERED: ATIVAN INJ 2 MG VIAL IVP PRN (08:43)
[2021-06-13] MEDS ORDERED: ATIVAN INJ 2 MG VIAL IVP SCH (09:00)
[2021-06-13] MEDS: CHECK PATCH XX SCH (09:49)
[2021-06-13] MEDS: EFFEXOR TAB 75 MG (BID DOSING) PO SCH (09:49)
[2021-06-13] MEDS: CRESTOR TAB 10 MG PO SCH (09:49)
[2021-06-13] MEDS: SYNTHROID 75 mcg TAB PO SCH (09:50)
[2021-06-13] MEDS: NYSTATIN POWDER TOP SCH (09:50)
[2021-06-13] MEDS: VANCOMYCIN IV *PREMIX 1 G/200 ML BAG 1 G/200 ML PIGGYBACK IV SCH (10:00)
[2021-06-13] MEDS: ZESTRIL TAB 5 MG PO SCH (10:00)
[2021-06-13] MEDS: ULTRAM PO PRN (10:07)
[2021-06-13] MEDS ORDERED: NS 100 ML IV 100 ML ONE (10:50)
[2021-06-13] MEDS: TRADJENTA PO SCH (10:52)
--- NOTE | 2021-06-13 10:55 | NOTE.SOAP ---
Soap Note Note for Day of Date of Exam: 06/13/21 Subjective Data Subjective Data: Doing well. For podiatric surgery today. No need for arterial intervention . Objective Data Temperature: 98 F Pulse Rate: 88 Respiratory Rate: 20 Blood Pressure: 134/88 O2 Sat by Pulse Oximetry: 95 Assessment Assessment: Infected hardware right foot and ankle, diabetic wound infection left foot. Normal CTA of aorta with runoff. Plan Plan: Foe surgery today. I will sign off
[2021-06-13] MEDS: BENADRYL CAP/TAB 25 MG PO PRN (11:00)
[2021-06-13] MEDS: NEURONTIN CAP 400 MG PO SCH (12:31)
--- NOTE | 2021-06-13 15:40 | PCM.PROG ---
Progress Note Progress Note for Day of Date of Exam: 06/13/21 Subjective Subjective: Patient seen at bedside, no overnight events. Patient states she is anxious about the surgery. She is scheduled to go this afternoon for a flap closure on the left foot. She has been getting IV antibiotics. She did have dressing changed yesterday. CTA LE did not show any occlusion. Plan: follow vascular and podiatry recommendations, surgery this afternoon. Continue pain medications. Will add atival prn for anxiety. Continue NPO status. Monitor for any post-op complications. Past Medical Family Social History Past Med/Fam/Surg Hx: No changes since H&P Allergies: Allergies aspirin Allergy (Verified 06/07/21 16:09) Penicillins Allergy (Verified 06/07/21 16:09) Review of Systems ROS: No change since H&P Vital Signs and I&O's Vital Signs: Temperature 98.0 F Pulse Rate [Left Radial] 92 Pulse Rate 88 Respiratory Rate 20 Blood Pressure [Right Arm] 101/56 Blood Pressure 134/88 O2 Sat by Pulse Oximetry 96 Intake and Output: Intake & Output 06/10/21 06/11/21 06/12/21 06/13/21 23:59 23:59 23:59 23:59 Intake Total 3038 / 3038 1250 / 1250 1241 / 1241 702 / 702 Balance 3038 / 3038 1250 / 1250 1241 / 1241 702 / 702 Physical Exam Oriented: Normal Eyes: Normal Ear: Normal Nose: Normal Throat: Normal Respiratory: Normal Cardiovascular: Normal and Other (Pulses intact Both groins . No palpable distal pulses either ankle. ) Auscultation: Bowel Sounds: Normal Tenderness: Normal Skin: Wound (Left foot with the dorsal incision well coated. Sutures intact. No macerated skin. Very minimal Serous drainage. Plantar wound sub 1st metatarsal shaft with the abx beads in place. Skin edges appear viable. No erythema and no edema. No malodor. ) Musculoskeletal: Foot (tenderness to the right plantar foot with no redness, left foot with open wound as above) Psychiatric: Normal Mood Description: Depressed and Anxious Affect: Normal Speech Pattern: Clear Laboratory and Diagnostics Result Diagrams: 06/12/21 03:54 06/12/21 04:00 Labs: 06/07/21 16:55 Blood Blood Culture - Final 06/07/21 16:46 Blood Blood Culture - Final 06/08/21 15:00 Foot - Left Wound Gram Stain - Final 06/08/21 15:00 Foot - Left Wound Culture - Final Laboratory WBC 8.7 X10^3/uL (3.6-10.0) 06/12/21 03:54 RBC 4.22 X10^6/uL (3.5-5.4) 06/12/21 03:54 Hgb 10.7 g/dL (12.0-16.0) L 06/12/21 03:54 Hct 32.8 % (36.0-47.0) L 06/12/21 03:54 MCV 77.8 fL (80.0-100.0) L 06/12/21 03:54 MCH 25.3 pg (27.0-34.0) L 06/12/21 03:54 MCHC 32.5 g/dL (33.0-35.0) L 06/12/21 03:54 RDW 17.8 % (11.6-16.5) H 06/12/21 03:54 Plt Count 163 X10^3/uL (150.0-450.0) 06/12/21 03:54 MPV 7.9 fL (7.4-11.0) 06/12/21 03:54 Neut % (Auto) 66.1 % (42.0-75.0) 06/12/21 03:54 Lymph % (Auto) 23.3 % (21.0-51.0) 06/12/21 03:54 [place] % (Auto) 7.1 % (0.0-13.0) 06/12/21 03:54 Eos % (Auto) 3.2 % (0.9-2.9) H 06/12/21 03:54 Baso % (Auto) 0.3 % (0.2-1.0) 06/12/21 03:54 Neut # (Auto) 5.8 x10^3/uL (2.2-4.8) H 06/12/21 03:54 Lymph # (Auto) 2.0 X10^3/uL (1.3-2.9) 06/12/21 03:54 [place] # (Auto) 0.6 x10^3/uL (0.3-0.8) 06/12/21 03:54 Eos # (Auto) 0.3 x10^3/uL (0.0-0.2) H 06/12/21 03:54 Baso # (Auto) 0.0 X10^3/uL (0.0-0.1) 06/12/21 03:54 Absolute Nucleated RBC 0.0 /100WBC 06/12/21 03:54 ESR 49 MM/HOUR (0-20) H 06/07/21 16:46 Sodium 138 mmol/L (136-145) 06/12/21 03:54 Corrected Sodium 139 mmol/L (136-145) 06/12/21 03:54 Potassium 3.9 mmol/L (3.5-5.1) 06/12/21 03:54 Chloride 102 mmol/L (98-107) 06/12/21 03:54 Carbon Dioxide 27.1 mmol/L (21-32) 06/12/21 03:54 BUN 12 mg/dL (7-18) 06/12/21 03:54 Creatinine 0.83 mg/dL (0.55-1.02) 06/12/21 04:00 Est GFR (MDRD) Af Amer > 60 (>60) 06/12/21 03:54 Est GFR (MDRD) Non-Af > 60 (>60) 06/12/21 03:54 Glucose 122 mg/dL (65-99) H 06/12/21 03:54 POC Glucose (mg/dL) 151 mg/dL (65-99) H 06/13/21 12:17 Lactic Acid 1.3 mmol/L (0.4-2.0) 06/07/21 16:46 Calcium 8.6 mg/dL (8.5-10.1) 06/12/21 03:54 Corrected Calcium 9.4 mg/dL (8.5-10.1) 06/11/21 03:58 Total Bilirubin 0.20 mg/dL (0.2-1.0) 06/11/21 03:58 AST 13 Units/L (15-37) L 06/11/21 03:58 ALT 18 Units/L (12-78) 06/11/21 03:58 Alkaline Phosphatase 102 Units/L (46-116) 06/11/21 03:58 C-Reactive Protein 21.40 mg/L (0-3.0) H 06/07/21 16:46 Total Protein 7.0 g/dL (6.4-8.2) 06/11/21 03:58 Albumin 2.9 g/dL (3.4-5.0) L 06/11/21 03:58 Globulin 4.1 g/dL (2.5-4.5) 06/11/21 03:58 Albumin/Globulin Ratio 0.7 Ratio (1.1-2.1) L 06/11/21 03:58 Vancomycin Trough 21.5 ug/mL (15-20) H* 06/12/21 04:00 SARS CoV-2 RNA Rapid ABDIAZIZ Negative (NEGATIVE) 06/07/21 16:34 Tissue Pathology To follow 06/08/21 15:00 Plan (1) Left foot pain: Status: Acute (2) Cellulitis and abscess of foot: Status: Acute (3) Infection of left foot: Status: Acute (4) Charcot foot due to diabetes mellitus: Status: Acute (5) HTN (hypertension): Status: Acute Qualifiers: Hypertension type: primary hypertension Qualified Code(s): I10 - E ssential (primary) hypertension Plan: Continue current Rx (6) HLD (hyperlipidemia): Status: Acute Qualifiers: Hyperlipidemia type: unspecified Qualified Code(s): E78.5 - Hyperlipidemia, unspecified (7) Anxiety: Status: Acute (8) Depression: Status: Acute Qualifiers: Depression Type: unspecified Qualified Code(s): F32.A - Depression, unspecified
--- NOTE | 2021-06-13 16:36 | PCM.PROG ---
Progress Note Progress Note for Day of Date of Exam: 06/13/21 Subjective Subjective: Mrs. Mendes is a 51 year old female who is s/p left foot surgery, DOS was 06/08. She is doing well with minimal pain today. Left foot dressing is c/d/i. She has been NWB on the b/l LE. She denies any f/c/n/v/sob/calf pain. Past Medical Family Social History Past Med/Fam/Surg Hx: No changes since H&P Allergies: Allergies aspirin Allergy (Verified 06/07/21 16:09) Penicillins Allergy (Verified 06/07/21 16:09) Review of Systems ROS: No change since H&P Vital Signs and I&O's Vital Signs: Temperature 98.0 F Pulse Rate [Left Radial] 92 Pulse Rate 88 Respiratory Rate 20 Blood Pressure [Right Arm] 101/56 Blood Pressure 134/88 O2 Sat by Pulse Oximetry 96 Intake and Output: Intake & Output 06/10/21 06/11/21 06/12/21 06/13/21 23:59 23:59 23:59 23:59 Intake Total 3038 / 3038 1250 / 1250 1241 / 1241 702 / 702 Balance 3038 / 3038 1250 / 1250 1241 / 1241 702 / 702 Physical Exam Oriented: Normal Eyes: Normal Ear: Normal Nose: Normal Throat: Normal Respiratory: Normal Cardiovascular: Normal and Other (Pulses intact Both groins . No palpable distal pulses either ankle. ) : Normal Auscultation: Bowel Sounds: Normal Tenderness: Normal Skin: Wound (Left foot with the dorsal incision well coated. Sutures intact. No macerated skin. Very minimal Serous drainage. Plantar wound sub 1st metatarsal shaft with the abx beads in place. Skin edges appear viable. No erythema and no edema. No malodor. ) Musculoskeletal: Foot (Left foot with the sutures intact and the skin well coapted. The plantar wound with abx beads in place. No erythema and no edema. No active drainage. DP and PT pulses are diminished. No pain on palpation. ) Psychiatric: Normal Mood Description: Depressed and Anxious Affect: Normal Speech Pattern: Clear Laboratory and Diagnostics Result Diagrams: 06/12/21 03:54 06/12/21 04:00 Labs: 06/07/21 16:55 Blood Blood Culture - Final 06/07/21 16:46 Blood Blood Culture - Final 06/08/21 15:00 Foot - Left Wound Gram Stain - Final 06/08/21 15:00 Foot - Left Wound Culture - Final Laboratory WBC 8.7 X10^3/uL (3.6-10.0) 06/12/21 03:54 RBC 4.22 X10^6/uL (3.5-5.4) 06/12/21 03:54 Hgb 10.7 g/dL (12.0-16.0) L 06/12/21 03:54 Hct 32.8 % (36.0-47.0) L 06/12/21 03:54 MCV 77.8 fL (80.0-100.0) L 06/12/21 03:54 MCH 25.3 pg (27.0-34.0) L 06/12/21 03:54 MCHC 32.5 g/dL (33.0-35.0) L 06/12/21 03:54 RDW 17.8 % (11.6-16.5) H 06/12/21 03:54 Plt Count 163 X10^3/uL (150.0-450.0) 06/12/21 03:54 MPV 7.9 fL (7.4-11.0) 06/12/21 03:54 Neut % (Auto) 66.1 % (42.0-75.0) 06/12/21 03:54 Lymph % (Auto) 23.3 % (21.0-51.0) 06/12/21 03:54 [place] % (Auto) 7.1 % (0.0-13.0) 06/12/21 03:54 Eos % (Auto) 3.2 % (0.9-2.9) H 06/12/21 03:54 Baso % (Auto) 0.3 % (0.2-1.0) 06/12/21 03:54 Neut # (Auto) 5.8 x10^3/uL (2.2-4.8) H 06/12/21 03:54 Lymph # (Auto) 2.0 X10^3/uL (1.3-2.9) 06/12/21 03:54 [place] # (Auto) 0.6 x10^3/uL (0.3-0.8) 06/12/21 03:54 Eos # (Auto) 0.3 x10^3/uL (0.0-0.2) H 06/12/21 03:54 Baso # (Auto) 0.0 X10^3/uL (0.0-0.1) 06/12/21 03:54 Absolute Nucleated RBC 0.0 /100WBC 06/12/21 03:54 ESR 49 MM/HOUR (0-20) H 06/07/21 16:46 Sodium 138 mmol/L (136-145) 06/12/21 03:54 Corrected Sodium 139 mmol/L (136-145) 06/12/21 03:54 Potassium 3.9 mmol/L (3.5-5.1) 06/12/21 03:54 Chloride 102 mmol/L (98-107) 06/12/21 03:54 Carbon Dioxide 27.1 mmol/L (21-32) 06/12/21 03:54 BUN 12 mg/dL (7-18) 06/12/21 03:54 Creatinine 0.83 mg/dL (0.55-1.02) 06/12/21 04:00 Est GFR (MDRD) Af Amer > 60 (>60) 06/12/21 03:54 Est GFR (MDRD) Non-Af > 60 (>60) 06/12/21 03:54 Glucose 122 mg/dL (65-99) H 06/12/21 03:54 POC Glucose (mg/dL) 151 mg/dL (65-99) H 06/13/21 12:17 Lactic Acid 1.3 mmol/L (0.4-2.0) 06/07/21 16:46 Calcium 8.6 mg/dL (8.5-10.1) 06/12/21 03:54 Corrected Calcium 9.4 mg/dL (8.5-10.1) 06/11/21 03:58 Total Bilirubin 0.20 mg/dL (0.2-1.0) 06/11/21 03:58 AST 13 Units/L (15-37) L 06/11/21 03:58 ALT 18 Units/L (12-78) 06/11/21 03:58 Alkaline Phosphatase 102 Units/L (46-116) 06/11/21 03:58 C-Reactive Protein 21.40 mg/L (0-3.0) H 06/07/21 16:46 Total Protein 7.0 g/dL (6.4-8.2) 06/11/21 03:58 Albumin 2.9 g/dL (3.4-5.0) L 06/11/21 03:58 Globulin 4.1 g/dL (2.5-4.5) 06/11/21 03:58 Albumin/Globulin Ratio 0.7 Ratio (1.1-2.1) L 06/11/21 03:58 Vancomycin Trough 21.5 ug/mL (15-20) H* 06/12/21 04:00 SARS CoV-2 RNA Rapid ABDIAZIZ Negative (NEGATIVE) 06/07/21 16:34 Tissue Pathology To follow 06/08/21 15:00 Plan (1) Left foot pain: Status: Acute Plan: Patient has pain meds ordered PRN and a Duragesic Patch on. She was told to ask for pain meds if she needed any for improved pain control. (2) Cellulitis and abscess of foot: Status: Acute Plan: Mrs. Mendes is a DM female with a Hx of right LE Charcot and left foot partial 1st ray amp. Pain is well controlled. No growth on the wound culture. Wound is improved and appears ready for closure. She will benefit from a flap. She is with VSS and NAd. No leukocytosis. CTA with no evidence of significant vascular disease. Plan: NPO after midnight Plan or the OR on 06/13 for left surgery NWB on the left. PT evaluation Continue abx. Discussed the case with Dr. Glez, appreciate recommendations. We will also need to address the right LE charcot which will be done after the left foot surgery. Pending pathology. Will monitor. Please do not hesitate to contact me with questions or concerns. Yung [facility] [phone] (3) Infection of left foot: Status: Acute Plan: Mrs. Mendes is a DM female with a Hx of right LE Charcot and left foot partial 1st ray amp. Pain is well controlled. No growth on the wound culture. Incision site is well coapted. The plantar wound is stable with the abx beads in place. She is with VSS and NAD. No leukocytosis. CTA with no evidence of significant vascular disease. Plan: Left foot wound dressed with dsd The surgery was postponed. We will wait on the pathology. We may take the patient back to the OR early next week for wound closure. We are ok for discharge. Patient will not need a dressing change outpatient. I will give her 10 days of Doxycycline. Patient has a pain management doctor so she will not need any pain prescript ions. NWB on the b/l LE. WB on the right for transfers only PT evaluation Discussed the case with Dr. Glez, appreciate recommendations. We will also need to address the right LE charcot which will be done after the left foot surgery. Pending pathology. Will monitor. Please do not hesitate to contact me with questions or concerns. Yung [facility] [phone] (4) Charcot foot due to diabetes mellitus: Status: Acute (5) HTN (hypertension): Status: Acute Qualifiers: Hypertension type: primary hypertension Qualified Code(s): I10 - Essential (primary) hypertension Plan: Continue current Rx (6) HLD (hyperlipidemia): Status: Acute Qualifiers: Hyperlipidemia type: unspecified Qualified Code(s): E78.5 - Hyperlipidemia, unspecified (7) Anxiety: Status: Acute (8) Depression: Status: Acute Qualifiers: Depression Type: unspecified Qualified Code(s): F32.A - Depression, unspecified
[2021-06-13 17:25] VITALS: BP 130/68
[2021-06-13] MEDS ORDERED: PHARMACY COMMENT IV NR (20:30)
== END 2021-06-13 19:25 | disposition home or self-care (01) | DRG 603 ==
LOC: MED/SURG 16:01 → ER 16:01 → OBSVTOIN 20:16 → MED/SURG 20:41
PROVIDERS: ADMIT Internal Medicine; ATTEND Internal Medicine
DX: L03.116 Cellulitis of left lower limb; I10 Essential (primary) hypertension; L02.612 Cutaneous abscess of left foot; F32.A Depression, unspecified; E78.2 Mixed hyperlipidemia; E11.610 Type 2 diabetes mellitus with diabetic neuropathic arthropathy; E11.65 Type 2 diabetes mellitus with hyperglycemia; Z20.822 Contact with and (suspected) exposure to COVID-19; R79.82 Elevated C-reactive protein (CRP); F41.8 Other specified anxiety disorders; M86.8X7 Other osteomyelitis, ankle and foot; M79.672 Pain in left foot; R26.89 Other abnormalities of gait and mobility; E03.8 Other specified hypothyroidism

== ENCOUNTER 2021-06-27 11:56 | Inpatient (IN) ==
[2021-06-27] MEDS ORDERED: LR 1,000 ML IV 1,000 ML IV ONE (12:23)
[2021-06-27] MEDS ORDERED: CLEOCIN 600 MG IV PREMIX 600 MG/50 ML BAG IV ONE ×2 (12:23→19:42)
[2021-06-27 12:45] VITALS: BMI 45.5
[2021-06-27] MEDS ORDERED: ZOFRAN INJ 4 MG VIAL ONE ×2 (13:01→15:00)
[2021-06-27] MEDS ORDERED: BRIDION ONE (13:41)
[2021-06-27] MEDS ORDERED: NAROPIN 0.75% EPI ONE (13:41)
[2021-06-27] MEDS ORDERED: FENTANYL VIAL INJ 250 mcg ONE (13:41)
[2021-06-27] MEDS ORDERED: ZEMURON 50 MG VIAL ONE (13:42)
[2021-06-27] MEDS ORDERED: MARCAINE 0.25% INJ ONE (14:37)
[2021-06-27] MEDS ORDERED: TOBRAMYCIN SULFATE ONE (14:40)
[2021-06-27] MEDS ORDERED: VANCOMYCIN HCL ONE (14:40)
[2021-06-27] MEDS ORDERED: BETADINE SOLN ONE ×2 (14:43→15:55)
[2021-06-27] MEDS ORDERED: DIPRIVAN VIAL ONE (15:00)
[2021-06-27] MEDS ORDERED: VERSED ONE (15:00)
[2021-06-27] MEDS ORDERED: SUPRANE ONE (15:00)
[2021-06-27] MEDS ORDERED: QUELICIN (OR ANECTINE) ONE (15:00)
[2021-06-27] MEDS ORDERED: TORADOL 30 MG VIAL ONE (15:00)
[2021-06-27] MEDS ORDERED: HYDROGEN PEROXIDE 3% ONE (17:28)
[2021-06-27] MEDS ORDERED: REGLAN INJ 10 MG VIAL IVP PRN (17:53)
[2021-06-27] MEDS ORDERED: DILAUDID INJ IVP PRN (17:53)
[2021-06-27] MEDS ORDERED: BENADRYL INJ 50 MG VIAL IVP PRN (17:53)
[2021-06-27] MEDS ORDERED: BARHEMSYS INJ IVP PRN (17:53)
[2021-06-27] MEDS ORDERED: ZOFRAN INJ 4 MG VIAL IVP PRN ×2 (17:53→17:59)
[2021-06-27] MEDS ORDERED: PHENERGAN INJ 25 MG IM PRN (17:53)
[2021-06-27] MEDS: DILAUDID INJ IVP PRN ×2 (19:15→23:14)
[2021-06-27] MEDS ORDERED: COLACE CAP 100 MG PO ONE (19:41)
[2021-06-27] MEDS ORDERED: LOVENOX INJ 40 MG SYR SC ONE (19:41)
[2021-06-27] MEDS ORDERED: NS 250 ML IV 250 ML IV ONE (19:42)
[2021-06-27] MEDS: NS 250 ML IV 250 ML IV PRN (20:37)
[2021-06-27] MEDS: COLACE CAP 100 MG PO SCH (20:38)
[2021-06-27] MEDS: CLEOCIN 600 MG IV PREMIX 600 MG/50 ML BAG IV SCH (21:03)
[2021-06-28] MEDS: DILAUDID INJ IVP PRN ×5 (03:14→21:14)
[2021-06-28] MEDS: TYLENOL 325 MG TAB PO PRN ×2 (05:10→15:35)
[2021-06-28] MEDS: CLEOCIN 600 MG IV PREMIX 600 MG/50 ML BAG IV SCH ×3 (05:10→21:11)
[2021-06-28 06:24] LABS: BLOOD UREA NITROGEN 16 mg/dL (7-18); CALCIUM 8.4 mg/dL (8.5-10.1); CARBON DIOXIDE 28.5 mmol/L (21-32); CHLORIDE 104 mmol/L (98-107); COR NA(FOR HYPERGLY) 141 mmol/L (136-145); CREATININE 0.87 mg/dL (0.55-1.02); SODIUM 140 mmol/L (136-145); eGFR NON BLACK RACES > 60 (>60)
[2021-06-28] MEDS: BENTYL CAP 10 MG PO SCH ×2 (08:46→21:10)
[2021-06-28] MEDS: BUSPAR PO SCH ×2 (08:47→21:10)
[2021-06-28] MEDS: EFFEXOR TAB 75 MG (BID DOSING) PO SCH ×2 (08:48→21:10)
[2021-06-28] MEDS: COREG TAB 6.25 MG PO SCH ×2 (08:48→21:09)
[2021-06-28] MEDS: LOTRISONE CREAM 15 G TOP SCH ×2 (08:49→21:10)
[2021-06-28] MEDS: NEURONTIN CAP 400 MG PO SCH (08:50)
[2021-06-28] MEDS: ULTRAM PO SCH ×2 (08:51→21:11)
[2021-06-28] MEDS: PERCOCET TAB 5/325 MG PO SCH ×2 (08:51→23:04)
[2021-06-28] MEDS: ZESTRIL TAB 5 MG PO SCH (08:54)
[2021-06-28] MEDS ORDERED: ZYVOX TAB 600 MG PO SCH (09:00)
[2021-06-28] MEDS ORDERED: ESTRACE PO SCH (09:00)
[2021-06-28] MEDS: TRADJENTA PO SCH (10:00)
[2021-06-28] MEDS: LOVENOX INJ 40 MG SYR SC SCH (12:37)
[2021-06-28] MEDS: NovoLIN R (or HumuLIN R) SC PRN (13:21)
[2021-06-28] MEDS: ZOFRAN INJ 4 MG VIAL IVP PRN ×2 (13:22→21:14)
--- NOTE | 2021-06-28 20:00 | PCM.PROG ---
Progress Note Progress Note for Day of Date of Exam: 06/28/21 Subjective Subjective: Mrs. Mendes is a 51 year old female who is s/p right LE external fixation application, DOS was 06/27. Patient is doing well but does have some pain to the right LE. The dressings are intact and the right LE is elevated over two pillows. She denies any f/c/n/v/sob/calf pain. Past Medical Family Social History Past Med/Fam/Surg Hx: No changes since H&P Allergies: Allergies aspirin Allergy (Verified 06/07/21 16:09) Penicillins Allergy (Verified 06/07/21 16:09) Review of Systems ROS: No change since H&P Vital Signs and I&O's Vital Signs: Temperature 98.3 F Pulse Rate [Left] 92 Pulse Rate 97 Respiratory Rate 18 Blood Pressure [Left Arm] 135/69 Blood Pressure [Right Arm] 130/68 Blood Pressure 142/60 O2 Sat by Pulse Oximetry 97 Intake and Output: Intake & Output 06/25/21 06/26/21 06/27/21 06/28/21 23:59 23:59 23:59 23:59 Intake Total 1475 / 1475 1200 / 1200 Output Total 500 / 500 Balance 975 / 975 1200 / 1200 Physical Exam Musculoskeletal: Leg (Right LE External fixation is intact in good postion. Very minimal drainage noted. Mild edema. No erythema noted. Cap fill less than 3 sec to the digits. Sensation is diminished. Patient is able to move her digits x5 on the right. ) and Foot (Left foot dressing are clean, dry and intact. ) Mood Description: Calm Speech Pattern: Clear and Appropriate Laboratory and Diagnostics Result Diagrams: 06/28/21 05:45 06/28/21 05:45 Labs: 06/27/21 17:35 Foot - Left Wound Gram Stain - Final 06/27/21 17:35 Foot - Left Wound Culture - Preliminary 06/27/21 15:25 Leg - Right Wound Gram Stain - Final 06/27/21 15:25 Leg - Right Wound Culture - Preliminary Laboratory Sodium 140 mmol/L (136-145) 06/28/21 05:45 Corrected Sodium 141 mmol/L (136-145) 06/28/21 05:45 Potassium 4.4 mmol/L (3.5-5.1) 06/28/21 05:45 Chloride 104 mmol/L (98-107) 06/28/21 05:45 Carbon Dioxide 28.5 mmol/L (21-32) 06/28/21 05:45 BUN 16 mg/dL (7-18) 06/28/21 05:45 Creatinine 0.87 mg/dL (0.55-1.02) 06/28/21 05:45 Est GFR (MDRD) Af Amer > 60 (>60) 06/28/21 05:45 Est GFR (MDRD) Non-Af > 60 (>60) 06/28/21 05:45 Glucose 151 mg/dL (65-99) H 06/28/21 05:45 POC Glucose (mg/dL) 135 mg/dL (65-99) H 06/28/21 17:01 Calcium 8.4 mg/dL (8.5-10.1) L 06/28/21 05:45 Tissue Pathology To follow 06/27/21 15:25 Plan (1) Charcot foot due to diabetes mellitus: Status: Acute Plan: Mrs. Mendes is a 51 year old female who is s/p ex fix application on the right. Ex fix intact. Patient has pain to the Right LE. I have discussed this with Dr. Stock. Patient is currently taking home pain medication from the pain management which includes a Fentanyl patch. She is with VSS and NAD. No leukocytosis. Plan: NWB on the right LE. Continue to elevate the right LE WBAT on the left. PT evaluation. Patient will require transfer to snf. Pending final micro and pathology Will monitor. Please do not hesitate to contact me with questions or concerns. Yung Jonas, [facility] [phone]
[2021-06-28] MEDS: COLACE CAP 100 MG PO SCH (21:09)
[2021-06-28] MEDS: SINGULAIR TAB 10 MG PO SCH (21:23)
[2021-06-28] MEDS: CRESTOR TAB 10 MG PO SCH (21:23)
[2021-06-28] MEDS: LANTUS SC SCH (21:23)
[2021-06-29] MEDS: DILAUDID INJ IVP PRN ×5 (01:44→20:24)
[2021-06-29 04:49] LABS: BASOPHILS % (AUTO) 0.4 % (0.2-1.0); EOSINOPHILS # (AUTO) 0.1 x10^3/uL (0.0-0.2); HEMATOCRIT 31.8 % (36.0-47.0); HEMOGLOBIN 10.5 g/dL (12.0-16.0); LYMPHOCYTES # (AUTO) 1.3 X10^3/uL (1.3-2.9); LYMPHOCYTES % (AUTO) 17.7 % (21.0-51.0); MEAN CORPUSCULAR HEMOGLOBIN 26.1 pg (27.0-34.0); MEAN CORPUSCULAR VOLUME 79.1 fL (80.0-100.0); MEAN PLATELET VOLUME 8.6 fL (7.4-11.0); MONOCYTES # (AUTO) 0.5 x10^3/uL (0.3-0.8); MONOCYTES % (AUTO) 7.2 % (0.0-13.0); NEUTROPHILS # (AUTO) 5.3 x10^3/uL (2.2-4.8); NEUTROPHILS % (AUTO) 72.7 % (42.0-75.0); PLATELET COUNT 166 X10^3/uL (150.0-450.0); RED BLOOD COUNT 4.02 X10^6/uL (3.5-5.4); RED CELL DISTRIBUTION WIDTH 19.6 % (11.6-16.5); WHITE BLOOD COUNT 7.3 X10^3/uL (3.6-10.0)
[2021-06-29] MEDS: ZOFRAN INJ 4 MG VIAL IVP PRN ×2 (04:50→20:24)
[2021-06-29] MEDS: CLEOCIN 600 MG IV PREMIX 600 MG/50 ML BAG IV SCH ×3 (05:31→22:05)
[2021-06-29] MEDS: SYNTHROID 75 mcg TAB PO SCH (05:35)
[2021-06-29] MEDS: NS 250 ML IV 250 ML IV PRN (05:43)
[2021-06-29] MEDS: ULTRAM PO SCH ×2 (10:00→20:22)
[2021-06-29] MEDS: LOTRISONE CREAM 15 G TOP SCH ×2 (10:00→20:23)
[2021-06-29] MEDS: TRADJENTA PO SCH (10:00)
[2021-06-29] MEDS: PERCOCET TAB 5/325 MG PO SCH ×2 (10:00→22:19)
[2021-06-29] MEDS: NEURONTIN CAP 400 MG PO SCH (10:00)
[2021-06-29] MEDS: COREG TAB 6.25 MG PO SCH ×2 (10:00→20:23)
[2021-06-29] MEDS: ZESTRIL TAB 5 MG PO SCH (10:00)
[2021-06-29] MEDS: BENTYL CAP 10 MG PO SCH ×2 (10:00→20:22)
[2021-06-29] MEDS: EFFEXOR TAB 75 MG (BID DOSING) PO SCH ×2 (10:00→20:23)
[2021-06-29] MEDS: LOVENOX INJ 40 MG SYR SC SCH (10:00)
[2021-06-29] MEDS: BUSPAR PO SCH ×2 (10:00→20:22)
[2021-06-29] MEDS: COLACE CAP 100 MG PO SCH (20:22)
[2021-06-29] MEDS: CRESTOR TAB 10 MG PO SCH (20:22)
[2021-06-29] MEDS: SINGULAIR TAB 10 MG PO SCH (20:23)
[2021-06-29] MEDS: LANTUS SC SCH (20:39)
[2021-06-30] MEDS: DILAUDID INJ IVP PRN ×4 (01:10→23:46)
[2021-06-30] MEDS: CLEOCIN 600 MG IV PREMIX 600 MG/50 ML BAG IV SCH (05:25)
[2021-06-30] MEDS: ZOFRAN INJ 4 MG VIAL IVP PRN ×2 (05:26→21:03)
[2021-06-30] MEDS: SYNTHROID 75 mcg TAB PO SCH (05:53)
[2021-06-30] MEDS: ZESTRIL TAB 5 MG PO SCH (08:53)
[2021-06-30] MEDS: NEURONTIN CAP 400 MG PO SCH ×3 (08:53→21:17)
[2021-06-30] MEDS: LOVENOX INJ 40 MG SYR SC SCH (08:53)
[2021-06-30] MEDS: BENTYL CAP 10 MG PO SCH ×2 (08:53→21:17)
[2021-06-30] MEDS: TRADJENTA PO SCH (08:53)
[2021-06-30] MEDS: LOTRISONE CREAM 15 G TOP SCH ×2 (08:54→21:18)
[2021-06-30] MEDS: EFFEXOR TAB 75 MG (BID DOSING) PO SCH ×2 (08:54→21:17)
[2021-06-30] MEDS: BUSPAR PO SCH ×2 (08:54→21:18)
[2021-06-30] MEDS: LINZESS PO SCH (08:54)
[2021-06-30] MEDS: COREG TAB 6.25 MG PO SCH ×2 (08:55→21:17)
[2021-06-30] MEDS: ULTRAM PO SCH ×2 (08:55→21:19)
[2021-06-30] MEDS: PERCOCET TAB 5/325 MG PO SCH ×2 (08:55→21:15)
[2021-06-30 11:12] LABS: BASOPHILS % (AUTO) 0.4 % (0.2-1.0); EOSINOPHILS # (AUTO) 0.2 x10^3/uL (0.0-0.2); HEMATOCRIT 31.8 % (36.0-47.0); HEMOGLOBIN 10.5 g/dL (12.0-16.0); LYMPHOCYTES # (AUTO) 1.2 X10^3/uL (1.3-2.9); LYMPHOCYTES % (AUTO) 15.1 % (21.0-51.0); MEAN CORPUSCULAR HEMOGLOBIN 25.9 pg (27.0-34.0); MEAN CORPUSCULAR VOLUME 78.7 fL (80.0-100.0); MEAN PLATELET VOLUME 8.4 fL (7.4-11.0); MONOCYTES # (AUTO) 0.6 x10^3/uL (0.3-0.8); NEUTROPHILS # (AUTO) 6.1 x10^3/uL (2.2-4.8); NEUTROPHILS % (AUTO) 75.5 % (42.0-75.0); PLATELET COUNT 182 X10^3/uL (150.0-450.0); RED BLOOD COUNT 4.04 X10^6/uL (3.5-5.4); RED CELL DISTRIBUTION WIDTH 19.1 % (11.6-16.5)
[2021-06-30 11:15] LABS: BLOOD UREA NITROGEN 15 mg/dL (7-18); CALCIUM 8.8 mg/dL (8.5-10.1); CARBON DIOXIDE 29.9 mmol/L (21-32); CHLORIDE 103 mmol/L (98-107); COR NA(FOR HYPERGLY) 142 mmol/L (136-145); CREATININE 0.89 mg/dL (0.55-1.02); SODIUM 140 mmol/L (136-145); eGFR NON BLACK RACES > 60 (>60)
[2021-06-30] MEDS: NovoLIN R (or HumuLIN R) SC PRN (11:51)
--- NOTE | 2021-06-30 12:00 | PCM.PROG ---
Progress Note Progress Note for Day of Date of Exam: 06/30/21 Subjective Subjective: Patient seen at bedside, no events overnight. She states her pain has been controlled. She does take gabapentin 800 mg TID at home but has only been getting it at night here. She states that does help with her neuropathy. Seen by Podiatry this morning and dressing changed. s/p right LE external fixation application, DOS was 06/27 Plan: follow labs from this morning, change gabapentin to 800 mg TID. Continue pain control. Follow podiatry recommendations. Patient's wound Cx showed E. faecalis and staph haemolyticus resistant to clindamycin. Will switch to IV Vancomycin. Unable to do Zyvox as patient is already on venlafaxine so potential risk for serotonin syndrome. Continue PT/OT, possible transfer to SNF on Friday. Monitor AM labs and imaging. Past Medical Family Social History Past Med/Fam/Surg Hx: No changes since H&P Allergies: Allergies aspirin Allergy (Verified 06/07/21 16:09) Penicillins Allergy (Verified 06/07/21 16:09) Review of Systems ROS: No change since H&P Vital Signs and I&O's Vital Signs: Temperature 97.5 F Pulse Rate [Left] 85 Pulse Rate 97 Respiratory Rate 18 Blood Pressure [Left Arm] 118/56 Blood Pressure [Right Arm] 130/68 Blood Pressure 142/60 O2 Sat by Pulse Oximetry 95 Intake and Output: Intake & Output 06/27/21 06/28/21 06/29/21 06/30/21 23:59 23:59 23:59 23:59 Intake Total 1475 / 1475 1780 / 1780 1730 / 1730 270 / 270 Output Total 500 / 500 Balance 975 / 975 1780 / 1780 1730 / 1730 270 / 270 Physical Exam Oriented: Normal Eyes: Normal Ear: Normal Nose: Normal Throat: Normal Respiratory: Normal Cardiovascular: Normal Auscultation: Bowel Sounds: Normal Palpation: Normal Tenderness: Normal Skin: Wound and Other (b/l feet wrapped in dressing) Musculoskeletal: Leg (Right LE External fixation is intact in good postion. Very minimal drainage noted. Mild edema. No erythema noted. Cap fill less than 3 sec to the digits. Sensation is diminished. Patient is able to move her digits x5 on the right. ) and Foot (Left foot dressing are clean, dry and intact. ) Mood Description: Calm Speech Pattern: Clear and Appropriate Laboratory and Diagnostics Result Diagrams: 06/30/21 11:03 06/30/21 11:03 Labs: 06/27/21 17:35 Foot - Left Wound Gram Stain - Final 06/27/21 17:35 Foot - Left Wound Culture - Final Enterococcus Faecalis Staphylococcus Haemolyticus 06/27/21 15:25 Leg - Right Wound Gram Stain - Final 06/27/21 15:25 Leg - Right Wound Culture - Preliminary Laboratory WBC 8.0 X10^3/uL (3.6-10.0) 06/30/21 11:03 RBC 4.04 X10^6/uL (3.5-5.4) 06/30/21 11:03 Hgb 10.5 g/dL (12.0-16.0) L 06/30/21 11:03 Hct 31.8 % (36.0-47.0) L 06/30/21 11:03 MCV 78.7 fL (80.0-100.0) L 06/30/21 11:03 MCH 25.9 pg (27.0-34.0) L 06/30/21 11:03 MCHC 33.0 g/dL (33.0-35.0) 06/30/21 11:03 RDW 19.1 % (11.6-16.5) H 06/30/21 11:03 Plt Count 182 X10^3/uL (150.0-450.0) 06/30/21 11:03 MPV 8.4 fL (7.4-11.0) 06/30/21 11:03 Neut % (Auto) 75.5 % (42.0-75.0) H 06/30/21 11:03 Lymph % (Auto) 15.1 % (21.0-51.0) L 06/30/21 11:03 [place] % (Auto) 7.0 % (0.0-13.0) 06/30/21 11:03 Eos % (Auto) 2.0 % (0.9-2.9) 06/30/21 11:03 Baso % (Auto) 0.4 % (0.2-1.0) 06/30/21 11:03 Neut # (Auto) 6.1 x10^3/uL (2.2-4.8) H 06/30/21 11:03 Lymph # (Auto) 1.2 X10^3/uL (1.3-2.9) L 06/30/21 11:03 [place] # (Auto) 0.6 x10^3/uL (0.3-0.8) 06/30/21 11:03 Eos # (Auto) 0.2 x10^3/uL (0.0-0.2) 06/30/21 11:03 Baso # (Auto) 0.0 X10^3/uL (0.0-0.1) 06/30/21 11:03 Absolute Nucleated RBC 0.1 /100WBC 06/30/21 11:03 Sodium 140 mmol/L (136-145) 06/30/21 11:03 Corrected Sodium 142 mmol/L (136-145) 06/30/21 11:03 Potassium 4.0 mmol/L (3.5-5.1) 06/30/21 11:03 Chloride 103 mmol/L (98-107) 06/30/21 11:03 Carbon Dioxide 29.9 mmol/L (21-32) 06/30/21 11:03 BUN 15 mg/dL (7-18) 06/30/21 11:03 Creatinine 0.89 mg/dL (0.55-1.02) 06/30/21 11:03 Est GFR (MDRD) Af Amer > 60 (>60) 06/30/21 11:03 Est GFR (MDRD) Non-Af > 60 (>60) 06/30/21 11:03 Glucose 173 mg/dL (65-99) H 06/30/21 11:03 POC Glucose (mg/dL) 199 mg/dL (65-99) H 06/30/21 11:46 Calcium 8.8 mg/dL (8.5-10.1) 06/30/21 11:03 Tissue Pathology To follow 06/27/21 15:25 Plan (1) Charcot foot due to diabetes mellitus: Status: Acute Plan: (2) Depression: Status: Acute Qualifiers: Depression Type: unspecified Qualified Code(s): F32.A - Depression, unspecified (3) Anxiety: Status: Acute (4) HTN (hypertension): Status: Acute Qualifiers: Hypertension type: primary hypertension Qualified Code(s): I10 - Essential (primary) hypertension (5) Infection of left foot: Status: Acute (6) Cellulitis and abscess of foot: Status: Acute
[2021-06-30] MEDS: PHARMACY CONSULT - VANCOMYCIN XX SCH (12:27)
--- NOTE | 2021-06-30 12:43 | PCM.PROG ---
Progress Note Progress Note for Day of Date of Exam: 06/30/21 Subjective Subjective: Mrs. Mendes is a 51 year old female who is s/p right LE external fixation application, DOS was 06/27. Doing well with decreased pain. She denies any f/c/n/v/sob/calf pain. Past Medical Family Social History Past Med/Fam/Surg Hx: No changes since H&P Allergies: Allergies aspirin Allergy (Verified 06/07/21 16:09) Penicillins Allergy (Verified 06/07/21 16:09) Review of Systems ROS: No change since H&P Vital Signs and I&O's Vital Signs: Temperature 97.7 F Pulse Rate [Left] 75 Pulse Rate 97 Respiratory Rate 20 Blood Pressure [Left Arm] 115/55 Blood Pressure [Right Arm] 130/68 Blood Pressure 142/60 O2 Sat by Pulse Oximetry 92 Intake and Output: Intake & Output 06/27/21 06/28/21 06/29/21 06/30/21 23:59 23:59 23:59 23:59 Intake Total 1475 / 1475 1780 / 1780 1730 / 1730 270 / 270 Output Total 500 / 500 Balance 975 / 975 1780 / 1780 1730 / 1730 270 / 270 Physical Exam Oriented: Normal Eyes: Normal Ear: Normal Nose: Normal Throat: Normal Respiratory: Normal Cardiovascular: Normal Auscultation: Bowel Sounds: Normal Tenderness: Normal Skin: Wound and Other (b/l feet wrapped in dressing) Musculoskeletal: Leg (Right LE External fixation is intact in good postion. Very minimal drainage noted. Mild edema. No erythema noted. Cap fill less than 3 sec to the digits. Sensation is diminished. Patient is able to move her digits x5 on the right. ) and Foot (Left foot dressing are clean, dry and intact. ) Mood Description: Calm Speech Pattern: Clear and Appropriate Laboratory and Diagnostics Result Diagrams: 06/30/21 11:03 06/30/21 11:03 Labs: 06/27/21 15:25 Leg - Right Wound Gram Stain - Final 06/27/21 15:25 Leg - Right Wound Culture - Preliminary 06/27/21 17:35 Foot - Left Wound Gram Stain - Final 06/27/21 17:35 Foot - Left Wound Culture - Final Enterococcus Faecalis Staphylococcus Haemolyticus Laboratory WBC 8.0 X10^3/uL (3.6-10.0) 06/30/21 11:03 RBC 4.04 X10^6/uL (3.5-5.4) 06/30/21 11:03 Hgb 10.5 g/dL (12.0-16.0) L 06/30/21 11:03 Hct 31.8 % (36.0-47.0) L 06/30/21 11:03 MCV 78.7 fL (80.0-100.0) L 06/30/21 11:03 MCH 25.9 pg (27.0-34.0) L 06/30/21 11:03 MCHC 33.0 g/dL (33.0-35.0) 06/30/21 11:03 RDW 19.1 % (11.6-16.5) H 06/30/21 11:03 Plt Count 182 X10^3/uL (150.0-450.0) 06/30/21 11:03 MPV 8.4 fL (7.4-11.0) 06/30/21 11:03 Neut % (Auto) 75.5 % (42.0-75.0) H 06/30/21 11:03 Lymph % (Auto) 15.1 % (21.0-51.0) L 06/30/21 11:03 [place] % (Auto) 7.0 % (0.0-13.0) 06/30/21 11:03 Eos % (Auto) 2.0 % (0.9-2.9) 06/30/21 11:03 Baso % (Auto) 0.4 % (0.2-1.0) 06/30/21 11:03 Neut # (Auto) 6.1 x10^3/uL (2.2-4.8) H 06/30/21 11:03 Lymph # (Auto) 1.2 X10^3/uL (1.3-2.9) L 06/30/21 11:03 [place] # (Auto) 0.6 x10^3/uL (0.3-0.8) 06/30/21 11:03 Eos # (Auto) 0.2 x10^3/uL (0.0-0.2) 06/30/21 11:03 Baso # (Auto) 0.0 X10^3/uL (0.0-0.1) 06/30/21 11:03 Absolute Nucleated RBC 0.1 /100WBC 06/30/21 11:03 Sodium 140 mmol/L (136-145) 06/30/21 11:03 Corrected Sodium 142 mmol/L (136-145) 06/30/21 11:03 Potassium 4.0 mmol/L (3.5-5.1) 06/30/21 11:03 Chloride 103 mmol/L (98-107) 06/30/21 11:03 Carbon Dioxide 29.9 mmol/L (21-32) 06/30/21 11:03 BUN 15 mg/dL (7-18) 06/30/21 11:03 Creatinine 0.89 mg/dL (0.55-1.02) 06/30/21 11:03 Est GFR (MDRD) Af Amer > 60 (>60) 06/30/21 11:03 Est GFR (MDRD) Non-Af > 60 (>60) 06/30/21 11:03 Glucose 173 mg/dL (65-99) H 06/30/21 11:03 POC Glucose (mg/dL) 199 mg/dL (65-99) H 06/30/21 11:46 Calcium 8.8 mg/dL (8.5-10.1) 06/30/21 11:03 Tissue Pathology To follow 06/27/21 15:25 Plan (1) Charcot foot due to diabetes mellitus: Status: Acute Plan: 51 yo female who is s/p right LE ex fix application, DOS was 06/27. Ex fix is intact on the right LE. she is with VSS and NAD. No leukocytosis. Left foot wound with no sign of infection. Plan: Continue with NWB on the right LE WBAT on the left in a post op shoe PT evaluation, appreciated recs Patient to be discharged on Friday to rehab. She will need to follow up with Dr. Stanley outpatient. Rx's in the chart(Lovenox, Clindamycin) No dressing change on the right. On the left LE she will need a wet to dry dressing every other day. Will monitor Please do not hesitate to contact me with any questions or concerns Yung Jonas, [facility] [phone] (2) Depression: Status: Acute Qualifiers: Depression Type: unspecified Qualified Code(s): F32.A - Depression, unspecified (3) Anxiety: Status: Acute (4) HTN (hypertension): Status: Acute Qualifiers: Hypertension type: primary hypertension Qualified Code(s): I10 - Essential (primary) hypertension (5) Infection of left foot: Status: Acute (6) Cellulitis and abscess of foot: Status: Acute
[2021-06-30] MEDS: VANCOMYCIN IV *PREMIX 1.5 G/300 ML BAG 1.5 G/300 ML PIGGYBACK IV SCH (14:36)
[2021-06-30] MEDS ORDERED: BENADRYL CAP/TAB 25 MG PO ONE (15:15)
[2021-06-30] MEDS: BENADRYL CAP/TAB 25 MG PO SCH (15:20)
[2021-06-30] MEDS: LANTUS SC SCH (21:08)
[2021-06-30] MEDS: CRESTOR TAB 10 MG PO SCH (21:16)
[2021-06-30] MEDS: COLACE CAP 100 MG PO SCH (21:16)
[2021-06-30] MEDS: SINGULAIR TAB 10 MG PO SCH (21:18)
[2021-07-01] MEDS: NS 250 ML IV 250 ML IV PRN (00:03)
[2021-07-01] MEDS: VANCOMYCIN IV *PREMIX 1.5 G/300 ML BAG 1.5 G/300 ML PIGGYBACK IV SCH (00:03)
[2021-07-01] MEDS: BENADRYL CAP/TAB 25 MG PO SCH (00:14)
[2021-07-01] MEDS: NEURONTIN CAP 400 MG PO SCH ×3 (05:42→21:04)
[2021-07-01] MEDS: SYNTHROID 75 mcg TAB PO SCH (05:43)
[2021-07-01] MEDS: ZOFRAN INJ 4 MG VIAL IVP PRN ×2 (05:44→23:31)
[2021-07-01] MEDS: DILAUDID INJ IVP PRN ×4 (05:44→23:30)
[2021-07-01 06:20] LABS: BASOPHILS # (AUTO) 0.1 X10^3/uL (0.0-0.1); EOSINOPHILS # (AUTO) 0.3 x10^3/uL (0.0-0.2); MEAN PLATELET VOLUME 9.3 fL (7.4-11.0); MONOCYTES # (AUTO) 0.9 x10^3/uL (0.3-0.8)
[2021-07-01 06:27] LABS: BASOPHILS % (AUTO) 0.8 % (0.2-1.0); EOSINOPHILS % (AUTO) 2.7 % (0.9-2.9); HEMATOCRIT 32.2 % (36.0-47.0); HEMOGLOBIN 10.6 g/dL (12.0-16.0); LYMPHOCYTES % (AUTO) 18.2 % (21.0-51.0); MEAN CORPUSCULAR HEMOGLOBIN 25.6 pg (27.0-34.0); MEAN CORPUSCULAR HGB CONC 32.9 g/dL (33.0-35.0); MEAN CORPUSCULAR VOLUME 77.8 fL (80.0-100.0); MONOCYTES % (AUTO) 8.1 % (0.0-13.0); NEUTROPHILS # (AUTO) 7.8 x10^3/uL (2.2-4.8); NEUTROPHILS % (AUTO) 70.2 % (42.0-75.0); PLATELET COUNT 215 X10^3/uL (150.0-450.0); RED BLOOD COUNT 4.14 X10^6/uL (3.5-5.4); RED CELL DISTRIBUTION WIDTH 19.3 % (11.6-16.5); WHITE BLOOD COUNT 11.2 X10^3/uL (3.6-10.0)
[2021-07-01 06:31] LABS: BLOOD UREA NITROGEN 15 mg/dL (7-18); CALCIUM 8.7 mg/dL (8.5-10.1); CARBON DIOXIDE 26.9 mmol/L (21-32); CHLORIDE 103 mmol/L (98-107); COR NA(FOR HYPERGLY) 139 mmol/L (136-145); CREATININE 0.89 mg/dL (0.55-1.02); SODIUM 139 mmol/L (136-145); eGFR NON BLACK RACES > 60 (>60)
[2021-07-01 07:02] LABS: ANISOCYTOSIS SLIGHT; MICROCYTOSIS SLIGHT
[2021-07-01 07:07] LABS: PLATELET MORPHOLOGY COMMENT ABNORMAL (NORMAL)
[2021-07-01] MEDS: EFFEXOR TAB 75 MG (BID DOSING) PO SCH ×2 (09:40→21:04)
[2021-07-01] MEDS: TRADJENTA PO SCH (09:40)
[2021-07-01] MEDS: LOVENOX INJ 40 MG SYR SC SCH (09:40)
[2021-07-01] MEDS: LINZESS PO SCH (09:40)
[2021-07-01] MEDS: LOTRISONE CREAM 15 G TOP SCH ×2 (09:40→21:06)
[2021-07-01] MEDS: COREG TAB 6.25 MG PO SCH ×2 (09:40→21:06)
[2021-07-01] MEDS: BUSPAR PO SCH ×2 (09:40→21:06)
[2021-07-01] MEDS: BENTYL CAP 10 MG PO SCH ×2 (09:40→21:03)
[2021-07-01] MEDS: PERCOCET TAB 5/325 MG PO SCH ×2 (09:40→21:05)
[2021-07-01] MEDS: ZESTRIL TAB 5 MG PO SCH (09:40)
[2021-07-01] MEDS: ULTRAM PO SCH ×2 (09:40→21:08)
[2021-07-01] MEDS ORDERED: VISTARIL PO PRN (11:39)
--- NOTE | 2021-07-01 11:43 | PCM.PROG ---
Progress Note Progress Note for Day of Date of Exam: 07/01/21 Subjective Subjective: Patient seen at bedside, no events overnight. She states her fox has been well controlled. She is going to rehab in [place] tomorrow. Her Wound Cx was resistant to clindamycin so was switched to IV Vancomycin. Discussed with Podiatry the only PO option is Zyvox since patient will be going to rehab. Patient will need abx for 10 more days. s/p right LE external fixation application, DOS was 06/27 Plan: switch to Zyvox 600 mg BID x 10 days, continue pain control. PT as tolerated. Discharge to rehab tomorrow. Follow podiatry recommendations for dressing changes. Follow up with PCP and Podiatry outpatient. Past Medical Family Social History Past Med/Fam/Surg Hx: No changes since H&P Allergies: Allergies aspirin Allergy (Verified 06/07/21 16:09) Penicillins Allergy (Verified 06/07/21 16:09) Review of Systems ROS: No change since H&P Vital Signs and I&O's Vital Signs: Temperature 99.4 F Pulse Rate [Left] 98 Pulse Rate 97 Respiratory Rate 20 Blood Pressure [Left Arm] 129/56 Blood Pressure [Right Arm] 130/68 Blood Pressure 142/60 O2 Sat by Pulse Oximetry 98 Intake and Output: Intake & Output 06/28/21 06/29/21 06/30/21 07/01/21 23:59 23:59 23:59 23:59 Intake Total 1780 / 1780 1730 / 1730 890 / 890 500 / 500 Balance 1780 / 1780 1730 / 1730 890 / 890 500 / 500 Physical Exam Oriented: Normal Eyes: Normal Ear: Normal Nose: Normal Throat: Normal Respiratory: Normal Cardiovascular: Normal Auscultation: Bowel Sounds: Normal Tenderness: Normal Skin: Wound and Other (b/l feet wrapped in dressing) Musculoskeletal: Leg (Right LE External fixation is intact in good postion. Very minimal drainage noted. Mild edema. No erythema noted. Cap fill less than 3 sec to the digits. Sensation is diminished. Patient is able to move her digits x5 on the right. ) and Foot (Left foot dressing are clean, dry and intact. ) Mood Description: Calm Speech Pattern: Clear and Appropriate Laboratory and Diagnostics Result Diagrams: 07/01/21 05:20 07/01/21 05:20 Labs: 12/01/21 15:25 Leg - Right Wound Gram Stain - Final 06/27/21 15:25 Leg - Right Wound Culture - Preliminary 06/27/21 17:35 Foot - Left Wound Gram Stain - Final 06/27/21 17:35 Foot - Left Wound Culture - Final Enterococcus Faecalis Staphylococcus Haemolyticus Laboratory WBC 11.2 X10^3/uL (3.6-10.0) H 07/01/21 05:20 RBC 4.14 X10^6/uL (3.5-5.4) 07/01/21 05:20 Hgb 10.6 g/dL (12.0-16.0) L 07/01/21 05:20 Hct 32.2 % (36.0-47.0) L 07/01/21 05:20 MCV 77.8 fL (80.0-100.0) L 07/01/21 05:20 MCH 25.6 pg (27.0-34.0) L 07/01/21 05:20 MCHC 32.9 g/dL (33.0-35.0) L 07/01/21 05:20 RDW 19.3 % (11.6-16.5) H 07/01/21 05:20 Plt Count 215 X10^3/uL (150.0-450.0) 07/01/21 05:20 Plt Count Comment Adequate (ADEQUATE) 07/01/21 05:20 MPV 9.3 fL (7.4-11.0) 07/01/21 05:20 Neut % (Auto) 70.2 % (42.0-75.0) 07/01/21 05:20 Lymph % (Auto) 18.2 % (21.0-51.0) L 07/01/21 05:20 [place] % (Auto) 8.1 % (0.0-13.0) 07/01/21 05:20 Eos % (Auto) 2.7 % (0.9-2.9) 07/01/21 05:20 Baso % (Auto) 0.8 % (0.2-1.0) 07/01/21 05:20 Neut # (Auto) 7.8 x10^3/uL (2.2-4.8) H 07/01/21 05:20 Lymph # (Auto) 2.0 X10^3/uL (1.3-2.9) 07/01/21 05:20 [place] # (Auto) 0.9 x10^3/uL (0.3-0.8) H 07/01/21 05:20 Eos # (Auto) 0.3 x10^3/uL (0.0-0.2) H 07/01/21 05:20 Baso # (Auto) 0.1 X10^3/uL (0.0-0.1) 07/01/21 05:20 Absolute Nucleated RBC 0.1 /100WBC 07/01/21 05:20 Plt Clumps, EDTA Rare 07/01/21 05:20 Plt Morphology Comment Abnormal (NORMAL) A 07/01/21 05:20 RBC Morphology Abnormal (NORMAL) A 07/01/21 05:20 Anisocytosis Slight A 07/01/21 05:20 Microcytosis Slight A 07/01/21 05:20 Sodium 139 mmol/L (136-145) 07/01/21 05:20 Corrected Sodium 139 mmol/L (136-145) 07/01/21 05:20 Potassium 4.0 mmol/L (3.5-5.1) 07/01/21 05:20 Chloride 103 mmol/L (98-107) 07/01/21 05:20 Carbon Dioxide 26.9 mmol/L (21-32) 07/01/21 05:20 BUN 15 mg/dL (7-18) 07/01/21 05:20 Creatinine 0.89 mg/dL (0.55-1.02) 07/01/21 05:20 Est GFR (MDRD) Af Amer > 60 (>60) 07/01/21 05:20 Est GFR (MDRD) Non-Af > 60 (>60) 07/01/21 05:20 Glucose 116 mg/dL (65-99) H 07/01/21 05:20 POC Glucose (mg/dL) 139 mg/dL (65-99) H 07/01/21 05:31 Calcium 8.7 mg/dL (8.5-10.1) 07/01/21 05:20 Tissue Pathology To follow 06/27/21 15:25 Plan (1) Charcot foot due to diabetes mellitus: Status: Acute Plan: (2) Depression: Status: Acute Qualifiers: Depression Type: unspecified Qualified Code(s): F32.A - Depression, unspecified (3) Anxiety: Status: Acute (4) HTN (hypertension): Status: Acute Qualifiers: Hypertension type: primary hypertension Qualified Code(s): I10 - Essent ial (primary) hypertension (5) Infection of left foot: Status: Acute (6) Cellulitis and abscess of foot: Status: Acute
[2021-07-01] MEDS: PHARMACY CONSULT - VANCOMYCIN XX SCH (12:19)
[2021-07-01] MEDS: ZYVOX TAB 600 MG PO SCH ×3 (12:27→21:06)
[2021-07-01] MEDS ORDERED: ZYVOX 600MG IV 600 MG/300 ML BAG IV ONE (12:28)
[2021-07-01] MEDS: LANTUS SC SCH (21:00)
[2021-07-01] MEDS: CRESTOR TAB 10 MG PO SCH (21:04)
[2021-07-01] MEDS: COLACE CAP 100 MG PO SCH (21:05)
[2021-07-01] MEDS: SINGULAIR TAB 10 MG PO SCH (21:06)
[2021-07-02] MEDS ORDERED: PHARMACY COMMENT IV SCH
[2021-07-02] MEDS: DILAUDID INJ IVP PRN ×2 (03:36→11:30)
[2021-07-02] MEDS: SYNTHROID 75 mcg TAB PO SCH (06:03)
[2021-07-02] MEDS: NEURONTIN CAP 400 MG PO SCH ×2 (06:03→13:55)
[2021-07-02] MEDS: BENTYL CAP 10 MG PO SCH (08:28)
[2021-07-02] MEDS: ULTRAM PO SCH (08:29)
[2021-07-02] MEDS: ZYVOX TAB 600 MG PO SCH (08:29)
[2021-07-02] MEDS: ZESTRIL TAB 5 MG PO SCH (08:29)
[2021-07-02] MEDS: BUSPAR PO SCH (08:30)
[2021-07-02] MEDS: PERCOCET TAB 5/325 MG PO SCH (08:30)
[2021-07-02] MEDS: TRADJENTA PO SCH (08:30)
[2021-07-02] MEDS: COREG TAB 6.25 MG PO SCH (08:30)
[2021-07-02] MEDS: LOTRISONE CREAM 15 G TOP SCH (08:30)
[2021-07-02] MEDS: LINZESS PO SCH (08:30)
[2021-07-02] MEDS: EFFEXOR TAB 75 MG (BID DOSING) PO SCH (08:40)
[2021-07-02] MEDS: LOVENOX INJ 40 MG SYR SC SCH (08:41)
[2021-07-02] MEDS: ZOFRAN INJ 4 MG VIAL IVP PRN (11:30)
[2021-07-02 12:12] VITALS: BP 114/58
== END 2021-07-02 14:10 | DRG 603 ==
LOC: SURG1 11:56 → MED/SURG 14:32
PROVIDERS: ADMIT Podiatrist; ATTEND Obstetrics & Gynecology Obstetrics
PROC: APEXFIX (2021-06-27 14:40)
DX: B95.2 Enterococcus as the cause of diseases classified elsewhere; M14.671 Charcot's joint, right ankle and foot; L03.115 Cellulitis of right lower limb; I10 Essential (primary) hypertension; F32.A Depression, unspecified; Z20.822 Contact with and (suspected) exposure to COVID-19; B95.7 Other staphylococcus as the cause of diseases classified elsewhere; F41.8 Other specified anxiety disorders; T84.116A Breakdown (mechanical) of internal fixation device of bone of right lower leg, initial encounter

== ENCOUNTER 2021-09-05 10:15 | Observation (INO) ==
[2021-09-05 10:03] VITALS: BMI 43.9
[~2021-09-05 10:15] MED LIST: ANCEF VIAL 1 GRAM ONE; NS 1,000 ML IV 1,000 ML ONE
[2021-09-05] MEDS ORDERED: VANCOMYCIN IV *PREMIX 1 G/200 ML BAG 1 G/200 ML PIGGYBACK IV ONE (12:33)
[2021-09-05] MEDS ORDERED: BENADRYL INJ 50 MG VIAL ONE (12:33)
[2021-09-05] MEDS ORDERED: MARCAINE 0.25% INJ ONE (12:34)
[2021-09-05] MEDS ORDERED: BRIDION ONE (12:36)
[2021-09-05] MEDS ORDERED: FENTANYL VIAL INJ 100 mcg ONE ×2 (12:36→13:46)
[2021-09-05] MEDS ORDERED: OFIRMEV IV 1000 MG VIAL 1,000 MG/100 ML VIAL IV ONE (12:36)
[2021-09-05] MEDS ORDERED: DILAUDID INJ ONE ×2 (12:36→16:10)
[2021-09-05] MEDS ORDERED: ZEMURON 50 MG VIAL ONE (12:37)
[2021-09-05] MEDS ORDERED: BETADINE SOLN ONE (12:44)
[2021-09-05] MEDS ORDERED: SUPRANE ONE ×2 (13:01→15:11)
[2021-09-05] MEDS ORDERED: TORADOL 30 MG VIAL ONE (13:01)
[2021-09-05] MEDS ORDERED: VERSED ONE (13:01)
[2021-09-05] MEDS ORDERED: DIPRIVAN VIAL ONE (13:01)
[2021-09-05] MEDS ORDERED: ZOFRAN INJ 4 MG VIAL ONE (13:01)
[2021-09-05] MEDS ORDERED: XYLOCAINE 2 % (PLAIN) ONE (13:01)
[2021-09-05] MEDS ORDERED: EPHEDRINE SULFATE INJ ONE (13:01)
[2021-09-05] MEDS ORDERED: HYDROGEN PEROXIDE 3% ONE (15:32)
[2021-09-05] MEDS ORDERED: REGLAN INJ 10 MG VIAL IVP PRN (16:00)
[2021-09-05] MEDS ORDERED: ZOFRAN INJ 4 MG VIAL IVP PRN (16:00)
[2021-09-05] MEDS ORDERED: BENADRYL INJ 50 MG VIAL IVP PRN (16:00)
[2021-09-05] MEDS ORDERED: PHENERGAN INJ 25 MG IM PRN (16:00)
[2021-09-05] MEDS ORDERED: BARHEMSYS INJ IVP PRN (16:00)
[2021-09-05] MEDS ORDERED: TYLENOL 325 MG TAB PO PRN (16:14)
[2021-09-05] MEDS: DILAUDID INJ IVP PRN ×3 (16:15→22:30)
[2021-09-05] MEDS: PERCOCET TAB 5/325 MG PO PRN (17:24)
[2021-09-05] MEDS: COLACE CAP 100 MG PO SCH (21:56)
[2021-09-06] MEDS: PERCOCET TAB 5/325 MG PO PRN ×4 (03:44→22:30)
[2021-09-06 06:36] LABS: BLOOD UREA NITROGEN 19 mg/dL (7-18); CALCIUM 8.3 mg/dL (8.5-10.1); CARBON DIOXIDE 24.4 mmol/L (21-32); CHLORIDE 109 mmol/L (98-107); COR NA(FOR HYPERGLY) 146 mmol/L (136-145); CREATININE 1.14 mg/dL (0.55-1.02); SODIUM 142 mmol/L (136-145); eGFR NON BLACK RACES 53 (>60)
[2021-09-06] MEDS ORDERED: BENTYL CAP 10 MG PO PRN (07:34)
[2021-09-06] MEDS: LOTRISONE CREAM 15 G TOP SCH ×2 (08:32→20:48)
[2021-09-06] MEDS: CRESTOR TAB 10 MG PO SCH (08:33)
[2021-09-06] MEDS: EFFEXOR TAB 75 MG (BID DOSING) PO SCH ×2 (08:33→20:48)
[2021-09-06] MEDS: SINGULAIR TAB 10 MG PO SCH (08:33)
[2021-09-06] MEDS: ZESTRIL TAB 5 MG PO SCH (08:33)
[2021-09-06] MEDS: COREG TAB 6.25 MG PO SCH ×2 (08:33→20:48)
[2021-09-06] MEDS: SYNTHROID 75 mcg TAB PO SCH (08:34)
[2021-09-06] MEDS: NEURONTIN CAP 400 MG PO SCH (08:34)
[2021-09-06] MEDS: LOVENOX INJ 40 MG SYR SC SCH (08:35)
[2021-09-06] MEDS: DILAUDID INJ IVP PRN ×4 (08:37→19:25)
[2021-09-06] MEDS: BUSPAR PO SCH ×2 (08:39→20:47)
[2021-09-06] MEDS: ZOFRAN INJ 4 MG VIAL IVP PRN (08:54)
[2021-09-06] MEDS: TRADJENTA PO SCH (11:18)
--- NOTE | 2021-09-06 12:58 | PCM.PROG ---
Progress Note Progress Note for Day of Date of Exam: 09/06/21 Subjective Subjective: Mrs. Mendes is a 51 yo female who was seen at bedside resting comfortably. Dressing intact with no strike through. She relates she has some pain and rates this at 6/10. She denies any f/c/n/v/sob/calf pain. Past Medical Family Social History Past Med/Fam/Surg Hx: No changes since H&P Allergies: Allergies aspirin Allergy (Verified 06/07/21 16:09) Penicillins Allergy (Verified 06/07/21 16:09) Vital Signs and I&O's Vital Signs: Temperature 98.6 F Pulse Rate [Left] 101 Pulse Rate 112 Respiratory Rate 20 Blood Pressure [Left Arm] 139/63 Blood Pressure [Right Arm] 130/68 Blood Pressure 124/58 O2 Sat by Pulse Oximetry 94 Intake and Output: Intake & Output 09/03/21 09/04/21 09/05/21 09/06/21 23:59 23:59 23:59 23:59 Intake Total 2320 / 2320 962 / 962 Output Total 1010 / 1010 Balance 1310 / 1310 962 / 962 Physical Exam Cardiovascular: Other (Cap fill less than 3 sec to the rigth digits x5. ) Skin: Other (Mild edema with no erthema appreciated.) Musculoskeletal: Foot (Patient is able to move her right digits x5. ) and Sensory Deficit (Sensation is diminished to light touch on the right. ) Mood Description: Calm Speech Pattern: Clear and Appropriate Laboratory and Diagnostics Result Diagrams: 09/06/21 05:48 09/06/21 05:48 Labs: Laboratory Sodium 142 mmol/L (136-145) 09/06/21 05:48 Corrected Sodium 146 mmol/L (136-145) H 09/06/21 05:48 Potassium 5.1 mmol/L (3.5-5.1) 09/06/21 05:48 Chloride 109 mmol/L (98-107) H 09/06/21 05:48 Carbon Dioxide 24.4 mmol/L (21-32) 09/06/21 05:48 BUN 19 mg/dL (7-18) H 09/06/21 05:48 Creatinine 1.14 mg/dL (0.55-1.02) H 09/06/21 05:48 Est GFR (MDRD) Af Amer > 60 (>60) 09/06/21 05:48 Est GFR (MDRD) Non-Af 53 (>60) L 09/06/21 05:48 Glucose 248 mg/dL (65-99) H 09/06/21 05:48 POC Glucose (mg/dL) 126 mg/dL (65-99) H 09/05/21 09:50 Calcium 8.3 mg/dL (8.5-10.1) L 09/06/21 05:48 SARS CoV-2 RNA Rapid ABDIAZIZ Negative (NEGATIVE) 09/05/21 10:08 Tissue Pathology To follow 09/05/21 14:00 Plan (1) Ankle pain, right: Status: Acute Plan: Mrs. Mendes is a 51 year old female who is s/p right ankle and STJ fusion, DOS was 09/05. The dressings are intact with no strike through. Patient is able to move her digits x5. Sensation absent to light tough. Pain of 6/10 on the right ankle. She is with VSS and NAD. Plan: Keep the dressing intact on the right LE. Elevate x 2 pillows Continue with ice 20 min every hour. NWB on the right LE PT evaluation pending. Patient will likely benefit from Rehab facility. Patient has steps at home and will likely be at risk of falling. She has to be Strict NWB on the right LE. Will monitor Please do not hesitate to contact me with questions or concerns. Yung Jonas DPM [facility] [phone]
[2021-09-06] MEDS: COLACE CAP 100 MG PO SCH (20:47)
[2021-09-07] MEDS: DILAUDID INJ IVP PRN ×2 (00:15→05:00)
[2021-09-07 05:58] LABS: BASOPHILS % (AUTO) 0.3 % (0.2-1.0); EOSINOPHILS # (AUTO) 0.2 x10^3/uL (0.0-0.2); EOSINOPHILS % (AUTO) 3.5 % (0.9-2.9); HEMATOCRIT 25.3 % (36.0-47.0); HEMOGLOBIN 8.4 g/dL (12.0-16.0); LYMPHOCYTES # (AUTO) 0.9 X10^3/uL (1.3-2.9); LYMPHOCYTES % (AUTO) 16.6 % (21.0-51.0); MEAN CORPUSCULAR HEMOGLOBIN 27.9 pg (27.0-34.0); MEAN CORPUSCULAR HGB CONC 33.3 g/dL (33.0-35.0); MEAN CORPUSCULAR VOLUME 83.6 fL (80.0-100.0); MEAN PLATELET VOLUME 8.3 fL (7.4-11.0); MONOCYTES # (AUTO) 0.6 x10^3/uL (0.3-0.8); MONOCYTES % (AUTO) 11.2 % (0.0-13.0); NEUTROPHILS # (AUTO) 3.9 x10^3/uL (2.2-4.8); NEUTROPHILS % (AUTO) 68.4 % (42.0-75.0); RED BLOOD COUNT 3.03 X10^6/uL (3.5-5.4); RED CELL DISTRIBUTION WIDTH 20.6 % (11.6-16.5); WHITE BLOOD COUNT 5.7 X10^3/uL (3.6-10.0)
[2021-09-07] MEDS: ZOFRAN INJ 4 MG VIAL IVP PRN ×2 (06:43→06:54)
[2021-09-07] MEDS ORDERED: ZOFRAN INJ 4 MG VIAL ONE (06:56)
[2021-09-07 07:28] LABS: ANISOCYTOSIS 1+; PLATELET MORPHOLOGY COMMENT NORMAL (NORMAL)
[2021-09-07] MEDS: ZESTRIL TAB 5 MG PO SCH (08:53)
[2021-09-07] MEDS: BUSPAR PO SCH (08:53)
[2021-09-07] MEDS: COREG TAB 6.25 MG PO SCH (08:54)
[2021-09-07] MEDS: TRADJENTA PO SCH (08:54)
[2021-09-07] MEDS: SINGULAIR TAB 10 MG PO SCH (08:54)
[2021-09-07] MEDS: EFFEXOR TAB 75 MG (BID DOSING) PO SCH (08:54)
[2021-09-07] MEDS: SYNTHROID 75 mcg TAB PO SCH (08:54)
[2021-09-07] MEDS: CRESTOR TAB 10 MG PO SCH (08:54)
[2021-09-07] MEDS: NEURONTIN CAP 400 MG PO SCH (08:54)
[2021-09-07] MEDS: LOVENOX INJ 40 MG SYR SC SCH (08:55)
[2021-09-07] MEDS: LOTRISONE CREAM 15 G TOP SCH (11:44)
[2021-09-07 12:41] VITALS: BP 113/63
== END 2021-09-07 12:55 | disposition home or self-care (01) ==
LOC: OBS → MED/SURG 16:22
PROVIDERS: ADMIT Obstetrics & Gynecology Obstetrics; ATTEND Obstetrics & Gynecology Obstetrics
PROC: HARDREM (ICD-10-PCS; 2021-09-05 10:30)
DX: M14.671 Charcot's joint, right ankle and foot; M19.171 Post-traumatic osteoarthritis, right ankle and foot; E03.8 Other specified hypothyroidism; M86.172 Other acute osteomyelitis, left ankle and foot